=== PATIENT | female | born 1935 | race Caucasian/White ===

== ENCOUNTER 2017-05-25 15:00 | Inpatient (IN) | payer MEDICARE ==
[~2017-05-25] VITALS: Ht 167.6 cm; Wt 79.1 kg
[~2017-05-25 15:00] MED LIST: LOSA50TA2 PO; MIRA50TA PO; PRAV10TA39 PO; SOLI10TA PO
[2017-06-15 12:28] VITALS: BP 157/73
[2017-06-15] MEDS ORDERED: HYDR25TA PO (12:32)
[2017-06-15] MEDS ORDERED: ASPI-1181 PO (12:34)
[2017-06-15] MEDS: CEFAZOLIN SODIUM 1 GM VIAL IVP SCH (12:45)
[2017-06-15 12:50] LABS: BASOPHILS % (AUTO) 0.6 % (0.0-5.0); HEMATOCRIT 37.4 % (36-48); LYMPHOCYTES % (AUTO) 20.3 % (21.0-51.0); MEAN CORPUSCULAR HEMOGLOBIN 31.5 pg (27.0-33.0); MEAN CORPUSCULAR HGB CONC 34.8 g/dL (32.0-36.0); MEAN CORPUSCULAR VOLUME 90.7 fL (79-99); MONOCYTES % (AUTO) 11.9 % (3.0-13.0); NEUTROPHILS % (AUTO) 65.2 % (40.0-77.0); PLATELET COUNT (AUTO) 304 K/uL (130-400); RED BLOOD CELL COUNT(AUTO) 4.12 MIL/uL (4.00-5.50); RED CELL DISTRIBUTION WIDTH 12.4 % (11.0-15.5); WHITE BLOOD COUNT (AUTO) 7.8 K/uL (4.8-10.8)
[2017-06-15 13:06] LABS: POTASSIUM 4.4 mmol/L (3.5-5.1)
[2017-06-19] VITALS (21 sets, daily range): BP systolic 102–155; BP diastolic 44–83
[2017-06-19] MEDS ORDERED: LACTATED RINGERS 1000ML 1,000 ML IV ONE (06:30)
[2017-06-19] MEDS ORDERED: BUPIVACAINE/EPI/PF 0.25% 30ML VIAL IJ ONE (06:31)
[2017-06-19] MEDS ORDERED: MICROFIBRILLAR COLLAGEN 1 GM PACKAGE TP ONE (06:31)
[2017-06-19] MEDS ORDERED: THROMBIN-JMI 20000 UNIT KIT TP ONE (06:32)
[2017-06-19] MEDS ORDERED: BACITRACIN 50,000 UNIT VIAL ONE (06:32)
[2017-06-19 06:58] LABS: CREATININE 0.8 mg/dL (0.5-1.5); POTASSIUM 3.7 mmol/L (3.5-5.1)
[2017-06-19] MEDS ORDERED: LIDOCAINE PF 2% 5ML ABBOJECT ONE (07:06)
[2017-06-19] MEDS ORDERED: GLYCOPYRROLATE 0.2 MG/ML 5 ML VIAL ONE ×2 (07:06→09:09)
[2017-06-19] MEDS ORDERED: DEXAMETHASONE SOD PHOSPHATE 10MG/ML 1ML VIAL ONE ×2 (07:06→09:08)
[2017-06-19] MEDS ORDERED: PROPOFOL 10 MG/ML 20ML VIAL IV ONE (07:07)
[2017-06-19] MEDS ORDERED: MIDAZOLAM HCL 1 MG/ML 2ML VIAL ONE ×2 (07:08→07:47)
[2017-06-19] MEDS ORDERED: FENTANYL CITRATE PF 50 MCG/1 ML 2ML VIAL ONE ×4 (07:09→10:31)
[2017-06-19] MEDS ORDERED: SODIUM CHLORIDE 0.9% 1000ML 1,000 ML IV ONE (07:16)
[2017-06-19] MEDS ORDERED: EPHEDRINE SULFATE 50 MG/ML AMPULE ONE (07:59)
[2017-06-19] MEDS: CEFAZOLIN SODIUM 1 GM VIAL IVP SCH (08:00)
[2017-06-19] MEDS ORDERED: MANNITOL 20% 500ML BAG 500 ML IV ONE (08:18)
[2017-06-19] MEDS ORDERED: LIDOCAINE HCL 4% LTA SOL 4 ML VIAL ONE (09:08)
[2017-06-19] MEDS ORDERED: ROCURONIUM BROMIDE 10MG/1ML 5ML VL ONE ×2 (09:08)
[2017-06-19] MEDS ORDERED: SUCCINYLCHOLINE CHLORIDE 20 MG/ML 10 ML VIAL ONE (09:08)
[2017-06-19] MEDS ORDERED: LIDOCAINE HCL 2% JELLY 5 ML ONE (09:08)
[2017-06-19] MEDS ORDERED: ARTIFICIAL TEARS 3.5 GM OINTMENT ONE ×2 (09:08)
[2017-06-19] MEDS ORDERED: SODIUM CHLORIDE 0.9% 10 ML VIAL ONE (09:09)
[2017-06-19] MEDS ORDERED: METOCLOPRAMIDE 10 MG/2 ML VIAL ONE (09:09)
[2017-06-19] MEDS ORDERED: PHENYLEPHRINE HCL 10 MG/ML 1ML VIAL IV ONE (09:09)
[2017-06-19] MEDS ORDERED: ONDANSETRON HCL MDV 20ML 2 MG/ML VIAL ONE (09:09)
[2017-06-19] MEDS ORDERED: NEOSTIGMINE METHYLSULFATE 1MG/ML IV ONE (09:09)
[2017-06-19] MEDS ORDERED: CALDOLOR 800MG+NS 250ML 250 ML IV ONE (09:14)
[2017-06-19] MEDS ORDERED: CEFAZOLIN 2GM / 50 ML 50 ML IV SCH (10:00)
[2017-06-19] MEDS ORDERED: SODIUM CHLORIDE 0.9% 10 ML VIAL IVP PRN (10:00)
[2017-06-19] MEDS ORDERED: PROMETHAZINE HCL 25 MG/ML 1ML AMPULE IM PRN (10:00)
[2017-06-19] MEDS ORDERED: MORPHINE SULFATE 2 MG/ML 1ML SYG IVP PRN (10:00)
[2017-06-19] MEDS ORDERED: MEPERIDINE-PF 25 MG/ML SYG ONE (10:21)
[2017-06-19] MEDS ORDERED: CEFAZOLIN SODIUM 1 GM VIAL IVP SCH ×2 (10:45→15:30)
[2017-06-19 11:38] LABS: CREATININE 0.9 mg/dL (0.5-1.5); POTASSIUM 3.9 mmol/L (3.5-5.1)
[2017-06-19] MEDS: DEXAMETHASONE SOD PHOSPHATE 4 MG/ML 1ML VIAL IVP SCH ×3 (12:00→22:24)
[2017-06-19] MEDS: LACTATED RINGERS 1000ML 1,000 ML IV SCH ×2 (15:44→22:51)
[2017-06-19] MEDS ORDERED: PRAVASTATIN SODIUM 10 MG PO SCH (21:00)
[2017-06-19] MEDS ORDERED: LOSARTAN 50 MG TABLET PO SCH (21:00)
[2017-06-19] MEDS ORDERED: ASPIRIN 81 MG EC TAB PO SCH (21:00)
[2017-06-19] MEDS: SOLIFENACIN SUCCINATE 10 MG PO SCH (21:00)
[2017-06-19] MEDS: HYDROCODONE/ACETAMINOPHEN 5/325 MG TAB PO PRN (21:14)
[2017-06-20 00:07] VITALS: BP 124/59
[2017-06-20] MEDS: DEXAMETHASONE SOD PHOSPHATE 4 MG/ML 1ML VIAL IVP SCH (04:20)
[2017-06-20] MEDS: HYDROCODONE/ACETAMINOPHEN 5/325 MG TAB PO PRN (04:21)
[2017-06-20 04:26] VITALS: BP 122/61
[2017-06-20 05:40] LABS: CREATININE 0.8 mg/dL (0.5-1.5); POTASSIUM 4.2 mmol/L (3.5-5.1)
[2017-06-20 07:37] VITALS: BP 142/81
[2017-06-20] MEDS: SOLIFENACIN SUCCINATE 10 MG PO SCH (08:52)
[2017-06-20] MEDS ORDERED: HYDROCHLOROTHIAZIDE 25 MG TABLET PO SCH (09:00)
[2017-06-20] MEDS ORDERED: **HM**Mirabegron (Myrbetriq) 50 MG PO SCH (09:00)
== END 2017-06-20 10:20 | disposition home or self-care (01) | DRG 519 ==
LOC: EDSTATUS 15:00 → DAHIP 06-19 05:44 → 4AH 06-19 11:10
PROVIDERS: ADMIT Neurological Surgery; ATTEND Neurological Surgery
PROC: 00NW0ZZ Release Cervical Spinal Cord, Open Approach (ICD-10-PCS; principal; 2017-06-20)
DX: M48.02 Spinal stenosis, cervical region (principal); E87.1 Hypo-osmolality and hyponatremia; E78.5 Hyperlipidemia, unspecified; I10 Essential (primary) hypertension; I25.10 Atherosclerotic heart disease of native coronary artery without angina pectoris; M25.78 Osteophyte, vertebrae; E66.9 Obesity, unspecified; K21.9 Gastro-esophageal reflux disease without esophagitis; Z68.28 Body mass index [BMI] 28.0-28.9, adult; Z98.1 Arthrodesis status; Z90.710 Acquired absence of both cervix and uterus
CPT/HCPCS: 36415; 72020; 80048; 85025; A4218; A4344; J0330; J0690; J1100; J1741; J2001; J2175; J2250; J2370; J2704; J2710; J2765; J3010; J3490; J7030; J7120

== ENCOUNTER → 2017-07-20 | Outpatient (CLI) | payer MEDICARE ==
[~2017-07-20] MED LIST changes: +ASPI-1181 PO
== END | disposition home or self-care (01) ==
LOC: OIH 10:49
PROVIDERS: ATTEND Neurological Surgery
DX: M47.892 Other spondylosis, cervical region (principal); N88.2 Stricture and stenosis of cervix uteri
CPT/HCPCS: 72040

== ENCOUNTER → 2017-08-17 | Outpatient (CLI) | payer MEDICARE ==
[~2017-08-17] MED LIST changes: +GADOBENATE DIMEGLUMINE 10 ML IV ONE
== END | disposition home or self-care (01) ==
LOC: RAH 10:52
PROVIDERS: ATTEND Physical Medicine & Rehabilitation
DX: M48.061 Spinal stenosis, lumbar region without neurogenic claudication (principal); M25.78 Osteophyte, vertebrae
CPT/HCPCS: 72158; A9577

== ENCOUNTER 2018-04-29 07:02 | Emergency (ER) | payer MEDICARE ==
[~2018-04-29 07:02] MED LIST changes: -GADOBENATE DIMEGLUMINE 10 ML IV ONE
[2018-04-29] MEDS ORDERED: KETOROLAC TROMETHAMINE 60 MG/2 ML VIAL ONE (07:27)
[2018-04-29] MEDS ORDERED: MORPHINE SULFATE 4 MG/1ML SYG ONE (07:52)
== END 2018-04-29 08:21 | disposition home or self-care (01) ==
LOC: EDH 07:02
DX: M54.32 Sciatica, left side (principal); I10 Essential (primary) hypertension; E78.5 Hyperlipidemia, unspecified; Z87.891 Personal history of nicotine dependence
CPT/HCPCS: 96372 ×2; 99283; J1885; J2270

== ENCOUNTER → 2018-05-02 | Outpatient (CLI) | payer MEDICARE ==
[~2018-05-02] MED LIST changes: +GADODIAMIDE 5 MMOL/10 ML VIAL 5 MMOL/10 ML ML IV ONE
== END | disposition home or self-care (01) ==
LOC: RAH 11:39
PROVIDERS: ATTEND Physical Medicine & Rehabilitation
DX: M16.11 Unilateral primary osteoarthritis, right hip (principal); K43.9 Ventral hernia without obstruction or gangrene; M47.27 Other spondylosis with radiculopathy, lumbosacral region; N32.89 Other specified disorders of bladder
CPT/HCPCS: 72197; A9579

== ENCOUNTER 2018-05-15 05:57 | Day surgery (SDC) | payer MEDICARE ==
[2018-05-13 12:45] VITALS: BP 145/76
[2018-05-15] VITALS (11 sets, daily range): BP systolic 131–166; BP diastolic 46–77
[~2018-05-15] VITALS: Ht 165.1 cm; Wt 70.9 kg
[~2018-05-15 05:57] MED LIST changes: +CA/MAG/ZINC PO; +CALC-116 PO; +CALCIUM/VIT D PO; +FISH OIL PO; +GABA-529 PO; -GADODIAMIDE 5 MMOL/10 ML VIAL 5 MMOL/10 ML ML IV ONE; +HYDR25TA PO; +I CAP PO; +MIRALAX PO; +MULT1TAB70 PO; +POTA99TA21 PO; +UBID200C37 PO; +VITAMIN B12 PO
[2018-05-15] MEDS ORDERED: GABA-529 PO ×2 (06:48)
--- NOTE | 2018-05-15 07:00 | NUR ---
PROCEDURE PT TAKEN TO RADIOLOGY FOR PROCEDURE VIA STRETCHER, NO DISTRESS NOTED.
[2018-05-15] MEDS ORDERED: ISOVUE-M 200 20 ML VIAL IT ONE (07:03)
--- NOTE | 2018-05-15 07:25 | NUR ---
CT LUMBAR MYELOGRAM PROCEDURE PERFORMED BY DR MAYERS. PUNCTURE SITE LOW BACK AND PATIENT TOLERATED PROCEDURE WELL. CONTRAST INJECTION OF ISOVUE 200MG/20ML GIVEN AT 0735 AND END OF PROCEDURE AT 0740. SPINAL NEEDLE REMOVED AND BANDAID APPLIED WITH NO BLEEDING NOTED. PER DR MAYERS ORDER S/L STARTED PT C/O LEFT LEG AND LUMBAR PAIN, S/L STARTED RW 22G X 1 STICK, MORPHINE 1 MG GIVEN IV, DECADRON 4 MG GIVEN IV. REPORT GIVEN TO URSULA ROGEL AND PATIENT TRANSPORTED TO DAYPATIENT VIA BED. AAO X3, C/O SLIGHT DISCOMFORT BUT FEELING BETTER.
[2018-05-15] MEDS ORDERED: MORPHINE SULFATE 2 MG/ML 1ML SYG ONE (07:45)
[2018-05-15] MEDS ORDERED: DEXAMETHASONE SOD PHOSPHATE 4 MG/ML 1ML VIAL ONE (08:00)
--- NOTE | 2018-05-15 08:00 | NUR ---
PROCEDURE RECEIVED PT FROM RADIOLOGY , S/P LUMBAR MYELOGRAM, DRESSING TO MID BACK DRY AND INTACT, PT INSTRUCTED TO MAINTAIN BEDREST FOR 4 HOURS AND ENCOURAGE PO FLUIDS, VS STABLE ON ARRIVAL.
[2018-05-15] MEDS ORDERED: METOPROLOL TARTRATE 50 MG TAB ONE (08:55)
[2018-05-15] MEDS ORDERED: ACETAMINOPHEN 325 MG TAB ONE (08:56)
--- NOTE | 2018-05-15 09:33 | NUR ---
REPORT REPORT GIVEN TO SANTOSH THAO TO RESUME CARE OF PATIENT
--- NOTE | 2018-05-15 09:35 | NUR ---
REPORT RECEIVED FROM BRYN RN,PT AWAKE ,ALERT ,NO COMPLAINS OF PAIN ,,,DRESSING TO BACK CLEAN AND DRY,,CALL AHUMADA IN REACH
[2018-05-15] MEDS ORDERED: LIDOCAINE HCL 1% 20 ML VIAL ONE (09:55)
--- NOTE | 2018-05-15 10:15 | NUR ---
RESTING COMFORTABLY ,NO DISCOMFORT,RESP NONLABORED ,ASSESSED PT,LUNGS CLEAR ,REMAINS ON BEDREST,CALL AHUMADA, IN REACH
--- NOTE | 2018-05-15 11:45 | NUR ---
REPOSITIONED IN BED ,NO COMPLAINTS ,CONTINUES TO DRINK FLUIDS
--- NOTE | 2018-05-15 12:10 | NUR ---
ASSISTED TO SIT UP IN BED SLOWLY,,DOES WELL,NO DIZZINESS ,NO COMPLAINTS ,DRESSING TO MID BACK CLEAN AND DRY,,ASSISTED TO BR ,AMBULATES WITH CANE ,VOIDS,,
--- NOTE | 2018-05-15 12:15 | NUR ---
INSTRUCTIONS GIVEN TO PT AND FRIEND,VERBALIZE UNDERSTANDING,,,STATES WILL HAVE SOMEONE WITH HER AT ALL TIMES ,,AWARE TO CALL MD IF ANY CONCERNS,VERBALIZES UNDERSTANDING,AWARE TO START PRESCRIPTION TODAY,,PRESCRIPTION GIVEN TO FRIEND
--- NOTE | 2018-05-15 12:35 | NUR ---
TO CAR VIA WHEEL CHAIR
== END 2018-05-15 12:35 | disposition home or self-care (01) ==
LOC: DAH 05:57
PROVIDERS: ATTEND Neurological Surgery
DX: M54.16 Radiculopathy, lumbar region (principal); Z98.890 Other specified postprocedural states; Z79.899 Other long term (current) drug therapy
CPT/HCPCS: 62304; 72132; A4606; J1100; Q9966

== ENCOUNTER → 2019-01-29 | Outpatient (CLI) | payer MEDICARE ==
[~2019-01-29] MED LIST changes: -SOLI10TA PO
== END | disposition home or self-care (01) ==
LOC: RAH 12:41
PROVIDERS: ATTEND Physical Medicine & Rehabilitation
DX: M16.0 Bilateral primary osteoarthritis of hip (principal); M70.62 Trochanteric bursitis, left hip
CPT/HCPCS: 72195

== ENCOUNTER → 2019-02-17 | Outpatient (CLI) | payer MEDICARE ==
[~2019-02-17] MED LIST changes: +GADODIAMIDE 10 MMOL/20 ML VIAL IV ONE
== END | disposition home or self-care (01) ==
LOC: RAH 13:05
PROVIDERS: ATTEND Physical Medicine & Rehabilitation
DX: M48.061 Spinal stenosis, lumbar region without neurogenic claudication (principal); M51.36 Other intervertebral disc degeneration, lumbar region
CPT/HCPCS: 72158; A9579

== ENCOUNTER 2019-05-01 16:44 | Emergency (ER) | payer MEDICARE ==
[2019-05-01 17:30] LABS: CREATININE 0.6 mg/dL (0.5-1.5); POTASSIUM 3.8 mmol/L (3.5-5.1)
[2019-05-01 17:39] LABS: INR 1.08 (0.85-1.15); PARTIAL THROMBOPLASTIN TIME 27.7 SEC (26.3-35.5); PROTHROMBIN TIME 11.3 SEC (9.6-11.6)
[2019-05-01 17:57] LABS: BASOPHILS % (AUTO) 0.5 % (0.0-5.0); EOSINOPHILS % (AUTO) 4.1 % (0.0-8.0); HEMATOCRIT 31.9 % (36-48); MEAN CORPUSCULAR HEMOGLOBIN 30.7 pg (27.0-33.0); MEAN CORPUSCULAR HGB CONC 33.9 g/dL (32.0-36.0); MEAN CORPUSCULAR VOLUME 90.6 fL (79-99); MONOCYTES % (AUTO) 10.7 % (3.0-13.0); NEUTROPHILS % (AUTO) 62.4 % (40.0-77.0); PLATELET COUNT (AUTO) 262 K/uL (130-400); RED BLOOD CELL COUNT(AUTO) 3.52 MIL/uL (4.00-5.50); RED CELL DISTRIBUTION WIDTH 12.8 % (11.0-15.5); WHITE BLOOD COUNT (AUTO) 8.8 K/uL (4.8-10.8)
== END 2019-05-01 19:29 | disposition home or self-care (01) ==
LOC: EDH 16:44
DX: I82.431 Acute embolism and thrombosis of right popliteal vein (principal); E78.5 Hyperlipidemia, unspecified; I10 Essential (primary) hypertension; Z88.8 Allergy status to other drugs, medicaments and biological substances
CPT/HCPCS: 36415; 80048; 85025; 85610; 85730; 93926; 93971

== ENCOUNTER → 2019-05-01 | Outpatient (CLI) | payer MEDICARE ==
[~2019-05-01] MED LIST changes: -GADODIAMIDE 10 MMOL/20 ML VIAL IV ONE
== END | disposition home or self-care (01) ==
LOC: RAH 15:11
PROVIDERS: ATTEND Family Medicine
DX: I70.293 Other atherosclerosis of native arteries of extremities, bilateral legs (principal)
CPT/HCPCS: 93926; 93971

== ENCOUNTER → 2019-08-12 | Outpatient (CLI) | payer MEDICARE ==
[~2019-08-12] MED LIST changes: +APIX5TAB PO; -ASPI-1181 PO; +ASPI-1443 PO; +MULT-660 PO; -MULT1TAB70 PO; +OXYB5TAB15 PO; +RESTLESS LEG PO; +tylenol arthritis PO
== END | disposition home or self-care (01) ==
LOC: SHCH 13:31
PROVIDERS: ATTEND Internal Medicine Cardiovascular Disease
DX: I73.89 Other specified peripheral vascular diseases (principal)
CPT/HCPCS: 93925

== ENCOUNTER 2019-11-12 12:00 | Inpatient (IN) | payer MEDICARE ==
[~2019-11-12] VITALS: Ht 167.6 cm; Wt 66.7 kg
[~2019-11-12 12:00] MED LIST changes: -APIX5TAB PO; -ASPI-1443 PO; -GABA-529 PO; -MIRA50TA PO; -OXYB5TAB15 PO; -RESTLESS LEG PO; -VITAMIN B12 PO; -tylenol arthritis PO
[2019-11-12 16:45] LABS: BASOPHILS % (AUTO) 0.4 % (0.0-5.0); HEMATOCRIT 36.5 % (36-48); LYMPHOCYTES % (AUTO) 20.7 % (21.0-51.0); MEAN CORPUSCULAR HEMOGLOBIN 30.4 pg (27.0-33.0); MEAN CORPUSCULAR HGB CONC 33.4 g/dL (32.0-36.0); MONOCYTES % (AUTO) 8.2 % (3.0-13.0); NEUTROPHILS % (AUTO) 68.3 % (40.0-77.0); PLATELET COUNT (AUTO) 257 K/uL (130-400); RED BLOOD CELL COUNT(AUTO) 4.01 MIL/uL (4.00-5.50); RED CELL DISTRIBUTION WIDTH 13.7 % (11.0-15.5); WHITE BLOOD COUNT (AUTO) 11.2 K/uL (4.8-10.8)
[2019-11-12 16:51] LABS: APPEARANCE,URINE Clear (CLEAR); BILIRUBIN,URINE Negative (NEGATIVE); COLOR,URINE Yellow (YELLOW); GLUCOSE, URINE (UA) Negative (NEGATIVE); KETONES,URINE Trace mg/dL (NEGATIVE); LEUKOCYTE ESTERASE ,URINE Negative (NEGATIVE); NITRATE,URINE Negative (NEGATIVE); OCCULT BLOOD,URINE Small (NEGATIVE); PROTEIN,URINE Negative (NEGATIVE)
[2019-11-12 16:52] LABS: INR 1.11 (0.85-1.15); PROTHROMBIN TIME 11.9 SEC (9.6-11.6)
[2019-11-12 17:09] LABS: BACTERIA,URINE Few /HPF (None Seen); MUCUS,URINE Few LPF (None Seen); SQUAMOUS EPITHELIAL CELL,UR Moderate /HPF (0-2)
[2019-11-12 17:13] LABS: CREATININE 0.8 mg/dL (0.5-1.5); POTASSIUM 3.8 mmol/L (3.5-5.1)
--- NOTE | 2019-11-18 11:11 | NUR ---
LABS INFORMED DR. FREEMAN OF ABNORMAL UA/WBC. NO ORDERS RECEIVED. PROCEED WITH PLANNED PROCEDURE.
[2019-11-18 13:06] VITALS: BP 149/80
[2019-11-18] MEDS ORDERED: OXYB5TAB15 PO (14:53)
[2019-11-18] MEDS ORDERED: tylenol arthritis PO (14:53)
[2019-11-19] VITALS (24 sets, daily range): BP systolic 98–139; BP diastolic 50–72
[2019-11-19] MEDS: CEFAZOLIN SODIUM 1 GM VIAL IVP SCH ×2 (06:00→14:45)
[2019-11-19] MEDS ORDERED: LACTATED RINGERS 1000ML 1,000 ML IV ONE (08:28)
[2019-11-19] MEDS ORDERED: APIX5TAB PO (09:28)
[2019-11-19] MEDS ORDERED: RESTLESS LEG PO (09:28)
[2019-11-19] MEDS ORDERED: TRANEXAMIC ACID 1000MG/10ML ONE ×2 (12:58→13:27)
[2019-11-19] MEDS ORDERED: CEFAZOLIN SODIUM 1 GM VIAL ONE (13:27)
[2019-11-19] MEDS ORDERED: SUCCINYLCHOLINE CHLORIDE 20 MG/ML 10 ML VIAL ONE (13:59)
[2019-11-19] MEDS ORDERED: LIDOCAINE PF 2% 5ML ABBOJECT ONE (13:59)
[2019-11-19] MEDS ORDERED: GLYCOPYRROLATE 1 MG/5 ML SYRINGE ONE (14:00)
[2019-11-19] MEDS ORDERED: ONDANSETRON HCL 4 MG/2 ML VIAL ONE (14:00)
[2019-11-19] MEDS ORDERED: DEXAMETHASONE SOD PHOSPHATE 10MG/ML 1ML VIAL ONE (14:00)
[2019-11-19] MEDS ORDERED: NEOSTIGMINE 5MG/5ML SYR IV ONE (14:00)
[2019-11-19] MEDS ORDERED: PROPOFOL 10 MG/ML 20ML VIAL IV ONE (14:00)
[2019-11-19] MEDS ORDERED: KETAMINE 50MG/ML SYRINGE 50 MG/ML DISP.SYRIN IV ONE (14:04)
[2019-11-19] MEDS ORDERED: SODIUM CHLORIDE 0.9% 10 ML VIAL ONE (14:07)
[2019-11-19] MEDS ORDERED: ROCURONIUM 10MG/1ML SYR 10 MG/ML ML ONE ×2 (14:21→15:46)
[2019-11-19] MEDS ORDERED: EPHEDRINE SULFATE 50 MG/ML AMPULE ONE ×2 (15:03→16:52)
[2019-11-19] MEDS ORDERED: FENTANYL CITRATE PF 50 MCG/1 ML 2ML VIAL ONE ×2 (15:39→16:36)
[2019-11-19] MEDS ORDERED: CEFAZOLIN SODIUM 1 GM VIAL IRRIG ONE (15:40)
[2019-11-19] MEDS: SODIUM CHLORIDE 0.9% 1000ML 1,000 ML IV SCH (17:05)
[2019-11-19] MEDS ORDERED: DiphenhydrAMINE HCL 50 MG/ML VIAL IVP PRN (17:15)
[2019-11-19] MEDS ORDERED: POTASSIUM CHLORIDE 20MEQ/100ML 100 ML IV PRN (17:15)
[2019-11-19] MEDS ORDERED: ONDANSETRON HCL 4 MG/2 ML VIAL IVP PRN (17:15)
[2019-11-19] MEDS ORDERED: KETOROLAC TROMETHAMINE 15MG/ML IV PRN (17:15)
[2019-11-19] MEDS ORDERED: OXYCODONE HCL 5 MG TAB PO PRN (17:15)
[2019-11-19] MEDS ORDERED: LIDOCAINE HCL-MPF 1% 2ML VIAL IV PRN (17:15)
[2019-11-19] MEDS ORDERED: POTASSIUM CHLORIDE 20 MEQ ERTAB PO PRN (17:15)
[2019-11-19] MEDS ORDERED: CALCIUM CARBONATE 500 MG TABLET PO PRN (17:15)
[2019-11-19] MEDS ORDERED: FERROUS FUMARATE 324 MG TABLET PO PRN (17:15)
[2019-11-19] MEDS ORDERED: TEMAZEPAM 15 MG CAPSULE PO PRN (17:15)
[2019-11-19] MEDS ORDERED: POTASSIUM CHLORIDE 10% ELIXIR 20 MEQ/15 ML UDCUP PO PRN (17:15)
[2019-11-19] MEDS ORDERED: MEPERIDINE-PF 25 MG/ML SYG ONE ×2 (18:05→18:14)
[2019-11-19] MEDS: CELECOXIB 200 MG CAP PO SCH (20:38)
[2019-11-19] MEDS: FAMOTIDINE 20MG TAB 20 MG TAB PO SCH (20:38)
[2019-11-19] MEDS: PREGABALIN 25 MG CAP PO SCH (20:38)
[2019-11-20] VITALS (10 sets, daily range): BP systolic 58–127; BP diastolic 31–70
[2019-11-20] MEDS: CEFAZOLIN SODIUM 1 GM VIAL IVP SCH ×2 (00:44→08:36)
[2019-11-20] MEDS: ACETAMINOPHEN EXTRA STRENGTH 500 MG TABLET PO SCH ×4 (01:15→17:43)
[2019-11-20] MEDS: SODIUM CHLORIDE 0.9% 1000ML 1,000 ML IV SCH ×3 (03:05→16:42)
[2019-11-20 04:58] LABS: HEMATOCRIT 25.5 % (36-48); MEAN CORPUSCULAR HEMOGLOBIN 30.6 pg (27.0-33.0); MEAN CORPUSCULAR HGB CONC 33.7 g/dL (32.0-36.0); MEAN CORPUSCULAR VOLUME 90.7 fL (79-99); RED BLOOD CELL COUNT(AUTO) 2.81 MIL/uL (4.00-5.50); RED CELL DISTRIBUTION WIDTH 13.6 % (11.0-15.5); WHITE BLOOD COUNT (AUTO) 9.9 K/uL (4.8-10.8)
[2019-11-20 05:21] LABS: CREATININE 0.7 mg/dL (0.5-1.5); POTASSIUM 4.6 mmol/L (3.5-5.1)
[2019-11-20] MEDS ORDERED: FE FUMARATE/FA/MV, MIN COMB#15 1 TAB ONE (05:25)
[2019-11-20] MEDS ORDERED: CEFAZOLIN SODIUM 1 GM VIAL ONE (08:35)
[2019-11-20] MEDS: POLYETHYLENE GLYCOL 3350 17 GM POWD.PACK PO SCH (08:36)
[2019-11-20] MEDS: FAMOTIDINE 20MG TAB 20 MG TAB PO SCH ×2 (08:37→20:50)
[2019-11-20] MEDS: CELECOXIB 200 MG CAP PO SCH ×2 (08:37→20:50)
[2019-11-20] MEDS: OXYCODONE HCL 5 MG TAB PO PRN (08:38)
[2019-11-20] MEDS: PREGABALIN 25 MG CAP PO SCH ×2 (08:38→20:50)
[2019-11-20] MEDS ORDERED: APIXABAN 2.5 MG TABLET PO SCH (09:00)
[2019-11-20] MEDS ORDERED: SODIUM CHLORIDE 0.9% 500ML 500 ML IV SCH (11:15)
[2019-11-20] MEDS: OXYBUTYNIN CHLORIDE 5 MG TABLET PO SCH (20:50)
[2019-11-20] MEDS: SIMVASTATIN 10 MG TABLET PO SCH (20:50)
[2019-11-20] MEDS: APIXABAN 2.5 MG TABLET PO SCH (20:50)
[2019-11-21 00:26] VITALS: BP 121/54
[2019-11-21] MEDS: ACETAMINOPHEN EXTRA STRENGTH 500 MG TABLET PO SCH ×3 (02:17→18:13)
[2019-11-21 04:30] VITALS: BP 121/57
[2019-11-21 08:32] VITALS: BP 113/52
[2019-11-21] MEDS: OXYCODONE HCL 5 MG TAB PO PRN (08:42)
[2019-11-21] MEDS: APIXABAN 2.5 MG TABLET PO SCH ×2 (08:42→21:33)
[2019-11-21] MEDS: POLYETHYLENE GLYCOL 3350 17 GM POWD.PACK PO SCH (08:42)
[2019-11-21] MEDS: PREGABALIN 25 MG CAP PO SCH ×2 (08:44→21:34)
[2019-11-21] MEDS: FAMOTIDINE 20MG TAB 20 MG TAB PO SCH ×2 (08:44→21:34)
[2019-11-21] MEDS: CELECOXIB 200 MG CAP PO SCH ×2 (08:44→21:34)
[2019-11-21] MEDS ORDERED: CALCIUM PO SCH (09:00)
[2019-11-21] MEDS ORDERED: MAGNESIUM PO SCH (09:00)
[2019-11-21] MEDS ORDERED: ZINC PO SCH (09:00)
[2019-11-21] MEDS ORDERED: MULTIVITAMIN TABLET PO SCH (09:00)
[2019-11-21] MEDS ORDERED: FISH OIL 500 MG PO SCH (09:00)
[2019-11-21] MEDS ORDERED: MAG PO SCH (09:00)
[2019-11-21] MEDS ORDERED: [UNRECOGNIZED DRUG - OTHER] PO SCH (09:00)
[2019-11-21 11:22] VITALS: BP 125/49
[2019-11-21 13:01] LABS: HEMATOCRIT 21.6 % (36-48)
--- NOTE | 2019-11-21 14:00 | NUR ---
MET W PATIENT FOR DC PLANNING. PATIENT IS IN[place], LIVES ALONE, USES NO DME, HAS A SHOWER BENCH, HAS DAUGHTER OUT OF STATE BUT HAS GROUP OF FRIENDS HERE FOR ERRANDS/DRIVING ETC. DC IS TO [facility] AND REFERRAL SENT Addendum: 11/21/19 at 1849 by FLORESITA FLOWERS RN CM Amended: Links added.
[2019-11-21 16:57] VITALS: BP 110/42
[2019-11-21] MEDS ORDERED: MAGNESIUM CITRATE 296 ML SOLUTION ONE (18:06)
--- NOTE | 2019-11-21 18:38 | NUR ---
TO [facility] TONIGHT POST TRANSFUSION? EMS FORM PENDING TO BE FAXED, MOT PENDING TO BE SIGNED BY SOCIAL SERVICE TECHNICIAN. CALL TO HOUSE TO CHARGE TO REMIND TO SIGN PRIOR TO DC. Addendum: 11/21/19 at 1844 by FLORESITA FLOWERS RN CM Amended: Links added.
--- NOTE | 2019-11-21 20:00 | NUR ---
POST TRANSFUSION COMPLETE, TOLERATED WELL, NO REACTION NOTED, CHANGED DRESSING RIGHT HIP, INCISION D/I, NO REDNESS OR DRAINAGE NOTED AT THIS TIME, CLEANSED WITH BETADINE, DAB DRY, APPLY VENKAT DRESSING , DATE REMOVE 11/26/19, FLASHING GREEN
--- NOTE | 2019-11-21 20:57 | NUR ---
EMS PER MORNING NURSE EMS CALLED AWAITING FOR TRANSFER TO [facility], LEFT HAND 20 GAUGE CATHETER REMOVED APPLY 2X2 DRESSING
[2019-11-21] MEDS ORDERED: POTASSIUM GLUCONATE 99 MG PO SCH (21:00)
[2019-11-21] MEDS: OXYBUTYNIN CHLORIDE 5 MG TABLET PO SCH (21:34)
[2019-11-21] MEDS: SIMVASTATIN 10 MG TABLET PO SCH (21:34)
--- NOTE | 2019-11-21 21:50 | NUR ---
DISCHARGE DISCHARGE TO [facility] [place] VIA EMS, NO C/O PAIN AT THIS TIME, R HIP VENKAT DRESSING FLASHING GREEN
[2019-11-22] MEDS ORDERED: BISACODYL 10 MG SUPP.RECT RC PRN (17:15)
== END 2019-11-21 21:50 | DRG 470 ==
LOC: EDSTATUS 12:00 → DAHIP 11-19 07:54 → 3BH 11-19 18:51
PROVIDERS: ADMIT Orthopaedic Surgery; ATTEND Orthopaedic Surgery
PROC: 0SR90J9 Replacement of Right Hip Joint with Synthetic Substitute, Cemented, Open Approach (ICD-10-PCS; principal; 2019-11-19 14:09)
PROC: 3E0T3BZ Introduction of Anesthetic Agent into Peripheral Nerves and Plexi, Percutaneous Approach (ICD-10-PCS; 2019-11-19 14:09)
PROC: 30233N1 Transfusion of Nonautologous Red Blood Cells into Peripheral Vein, Percutaneous Approach (ICD-10-PCS; 2019-11-19 14:09)
DX: M16.11 Unilateral primary osteoarthritis, right hip (principal); D62 Acute posthemorrhagic anemia; I10 Essential (primary) hypertension; K21.9 Gastro-esophageal reflux disease without esophagitis; E78.5 Hyperlipidemia, unspecified; H26.9 Unspecified cataract; K59.09 Other constipation; I95.1 Orthostatic hypotension; Z90.711 Acquired absence of uterus with remaining cervical stump; Z88.8 Allergy status to other drugs, medicaments and biological substances; Z80.9 Family history of malignant neoplasm, unspecified; Z82.49 Family history of ischemic heart disease and other diseases of the circulatory system
CPT/HCPCS: 36415; 36430; 73503; 80048; 81001; 85014; 85018; 85025; 85027; 85610; 86850; 86900; 86901; 86922; 87641; 88304; 88311; 97039; C1776; G0378; J0330; J0690; J1100; J1885; J2001; J2175; J2405; J2704; J2710; J3010; J3490; J7030; J7120; P9016; U0003

== ENCOUNTER → 2020-03-24 | Outpatient (CLI) | payer MEDICARE ==
[~2020-03-24] MED LIST changes: +APIX5TAB PO; +OXYB5TAB15 PO; +RESTLESS LEG PO; +tylenol arthritis PO
== END | disposition home or self-care (01) ==
LOC: RAH 09:07
PROVIDERS: ATTEND Neurological Surgery
DX: M53.2X7 Spinal instabilities, lumbosacral region (principal)
CPT/HCPCS: 72192

== ENCOUNTER 2020-04-06 05:51 | Day surgery (SDC) | payer MEDICARE ==
[2020-04-01 12:30] LABS: BASOPHILS % (AUTO) 0.6 % (0.0-5.0); EOSINOPHILS % (AUTO) 2.1 % (0.0-8.0); HEMATOCRIT 36.2 % (36-48); LYMPHOCYTES % (AUTO) 29.5 % (21.0-51.0); MEAN CORPUSCULAR HEMOGLOBIN 30.6 pg (27.0-33.0); MEAN CORPUSCULAR HGB CONC 32.6 g/dL (32.0-36.0); MONOCYTES % (AUTO) 9.3 % (3.0-13.0); NEUTROPHILS % (AUTO) 58.3 % (40.0-77.0); PLATELET COUNT (AUTO) 235 K/uL (130-400); RED BLOOD CELL COUNT(AUTO) 3.85 MIL/uL (4.00-5.50); RED CELL DISTRIBUTION WIDTH 13.9 % (11.0-15.5); WHITE BLOOD COUNT (AUTO) 5.3 K/uL (4.8-10.8)
[2020-04-01 12:37] LABS: CREATININE 0.7 mg/dL (0.5-1.5); POTASSIUM 4.2 mmol/L (3.5-5.1)
[2020-04-05 12:11] VITALS: BP 144/71
[2020-04-06] VITALS (11 sets, daily range): BP systolic 121–156; BP diastolic 55–83
[2020-04-06] MEDS: CEFAZOLIN SODIUM 1 GM VIAL IVP SCH ×2 (06:00→09:57)
[2020-04-06] MEDS ORDERED: LACTATED RINGERS 1000ML 1,000 ML IV ONE (06:36)
[2020-04-06] MEDS ORDERED: MIDAZOLAM HCL 1 MG/ML 2ML VIAL ONE (09:12)
[2020-04-06] MEDS ORDERED: FENTANYL CITRATE PF 50 MCG/1 ML 2ML VIAL ONE (09:13)
[2020-04-06] MEDS ORDERED: LIDOCAINE HCL MPF 1% 5ML VIAL ONE (09:42)
[2020-04-06] MEDS ORDERED: SODIUM BICARB [NEONATAL] 4.2% 10ML SYG ONE (09:42)
[2020-04-06] MEDS ORDERED: ISOVUE-M 200 20 ML VIAL IT ONE (09:44)
[2020-04-06] MEDS ORDERED: LIDOCAINE HCL 1% 20 ML VIAL ONE (09:52)
== END 2020-04-06 11:30 | disposition home or self-care (01) ==
LOC: DAH 05:51
PROVIDERS: ATTEND Neurological Surgery
DX: M53.3 Sacrococcygeal disorders, not elsewhere classified (principal); I10 Essential (primary) hypertension; E78.5 Hyperlipidemia, unspecified; Z20.828 Contact with and (suspected) exposure to other viral communicable diseases
CPT/HCPCS: 36415; 72202; 80048; 85025; 93005; A4215; A4221; A4222; A4223; A4663; A6260; C9803; G0260; J0690; J1030; J2250; J3010; J3490 ×2; J7120 ×2; Q9966; U0003

== ENCOUNTER 2020-08-11 05:57 | Day surgery (SDC) | payer MEDICARE ==
[2020-08-11] VITALS (11 sets, daily range): BP systolic 120–158; BP diastolic 55–99
[~2020-08-11] VITALS: Ht 198.1 cm; Wt 68.0 kg
[~2020-08-11 05:57] MED LIST changes: -CA/MAG/ZINC PO; -CALC-116 PO; -CALCIUM/VIT D PO; -FISH OIL PO; -HYDR25TA PO; -I CAP PO; +LOSA100T58 PO; -LOSA50TA2 PO; -MIRALAX PO; -MULT-660 PO; -OXYB5TAB15 PO; -POTA99TA21 PO; -RESTLESS LEG PO; -UBID200C37 PO; -tylenol arthritis PO
[2020-08-11] MEDS ORDERED: LACTATED RINGERS 1000ML 1,000 ML IV ONE (06:10)
[2020-08-11] MEDS ORDERED: FENTANYL CITRATE PF 50 MCG/1 ML 2ML VIAL ONE (07:02)
[2020-08-11] MEDS ORDERED: MIDAZOLAM HCL 1 MG/ML 2ML VIAL ONE (07:02)
[2020-08-11] MEDS ORDERED: PROPOFOL 10 MG/ML 20ML VIAL IV ONE (07:03)
[2020-08-11] MEDS ORDERED: LIDOCAINE HCL 1% 20 ML VIAL ONE (07:04)
[2020-08-11] MEDS ORDERED: BUPIVACAINE/PF 0.25% 30ML VIAL IJ ONE (07:04)
[2020-08-11] MEDS ORDERED: SODIUM BICARB [NEONATAL] 4.2% 10ML SYG ONE (07:11)
[2020-08-11] MEDS ORDERED: PHARMACY COMMUNICATION MISC SCH (07:45)
[2020-08-11] MEDS ORDERED: IOPAMIDOL 10 ML VIAL ONE (07:51)
== END 2020-08-11 09:30 ==
LOC: DAH 05:57
PROVIDERS: ATTEND Neurological Surgery
DX: M53.3 Sacrococcygeal disorders, not elsewhere classified (principal); I10 Essential (primary) hypertension; M19.90 Unspecified osteoarthritis, unspecified site; Z79.899 Other long term (current) drug therapy
CPT/HCPCS: 72202; A4215; A4221; A4222; A4223 ×2; A4663; A5120; C9803; G0260; J1030; J2250; J2704; J3010; J3490 ×2; J7120; Q9966; U0003; J7030

== ENCOUNTER → 2020-09-10 | Outpatient (CLI) | payer MEDICARE | END | disposition home or self-care (01) | LOC: SHCH 16:51 | PROVIDERS: ATTEND Internal Medicine Cardiovascular Disease | DX: I35.1 Nonrheumatic aortic (valve) insufficiency (principal); R06.00 Dyspnea, unspecified | CPT/HCPCS: 93306; 93356 ==

== ENCOUNTER 2022-01-20 11:06 | Emergency (ER) | payer MEDICARE ==
[~2022-01-20] VITALS: Ht 165.1 cm; Wt 71.2 kg
[2022-01-20 13:50] LABS: BASOPHILS % (AUTO) 0.4 % (0.0-5.0); EOSINOPHILS % (AUTO) 1.8 % (0.0-8.0); HEMATOCRIT 37.9 % (36-48); LYMPHOCYTES % (AUTO) 17.9 % (21.0-51.0); MEAN CORPUSCULAR HEMOGLOBIN 30.6 pg (27.0-33.0); MEAN CORPUSCULAR VOLUME 89.8 fL (79-99); MONOCYTES % (AUTO) 10.8 % (3.0-13.0); NEUTROPHILS % (AUTO) 68.8 % (40.0-77.0); PLATELET COUNT (AUTO) 227 K/uL (130-400); RED BLOOD CELL COUNT(AUTO) 4.22 MIL/uL (4.00-5.50); RED CELL DISTRIBUTION WIDTH 12.3 % (11.0-15.5); WHITE BLOOD COUNT (AUTO) 9.9 K/uL (4.8-10.8)
[2022-01-20] MEDS ORDERED: MORPHINE 2 MG SYG IVP ONE (14:00)
[2022-01-20] MEDS ORDERED: 0.9% NACL 500ML IV.SOLN 500 ML IV ONE (14:00)
[2022-01-20] MEDS ORDERED: ONDANSETRON 4MG INJ IVP ONE (14:00)
[2022-01-20 14:13] LABS: POTASSIUM 4.7 mmol/L (3.5-5.1)
[2022-01-20 14:15] LABS: ALBUMIN 3.9 g/dL (3.5-5.0); TOTAL PROTEIN, SERUM 6.8 g/dL (6.0-8.3)
[2022-01-20] MEDS ORDERED: IOHEXOL 350 MG/ML 100ML INFUS..BTL IV ONE (15:01)
[2022-01-20 15:44] LABS: APPEARANCE,URINE CLEAR (CLEAR); BILIRUBIN,URINE NEGATIVE (NEGATIVE); COLOR,URINE LIGHT-YELLOW (YELLOW); GLUCOSE, URINE (UA) NEGATIVE (NEGATIVE); KETONES,URINE NEGATIVE (NEGATIVE); LEUKOCYTE ESTERASE ,URINE NEGATIVE Leu/uL (NEGATIVE); NITRATE,URINE NEGATIVE (NEGATIVE); OCCULT BLOOD,URINE SMALL (NEGATIVE); PH,URINE 5.5 (5.0-8.0); PROTEIN,URINE NEGATIVE (NEGATIVE); UROBILINOGEN,URINE 0.2 mg/dL (0.2-1.0)
[2022-01-20 15:52] LABS: BACTERIA,URINE RARE /HPF (None Seen); SQUAMOUS EPITHELIAL CELL,UR RARE /HPF (0-2)
[2022-01-20] MEDS ORDERED: TIZA-194 PO (16:08)
[2022-01-20] MEDS ORDERED: ACET-66 PO (16:08)
[2022-01-20 16:16] VITALS: BP 154/68
== END 2022-01-20 16:27 | disposition home or self-care (01) ==
LOC: EDH 11:06
DX: M25.511 Pain in right shoulder (principal); M54.6 Pain in thoracic spine; R06.02 Shortness of breath; R05.9 Cough, unspecified; E78.00 Pure hypercholesterolemia, unspecified; I10 Essential (primary) hypertension; Z98.890 Other specified postprocedural states; Z79.899 Other long term (current) drug therapy
CPT/HCPCS: 99285; 96374; 71260; 96375; 84484; 80053; 85025; 87088; 81001; 36415; 93005; J7040; J2405; Q9967

== ENCOUNTER → 2022-04-13 | Outpatient (CLI) | payer MEDICARE ==
[~2022-04-13] MED LIST changes: +ACET-66 PO; +TIZA-194 PO
== END | disposition home or self-care (01) ==
LOC: LAB 15:45
PROVIDERS: ATTEND Internal Medicine Cardiovascular Disease
DX: I10 Essential (primary) hypertension (principal); I25.10 Atherosclerotic heart disease of native coronary artery without angina pectoris
CPT/HCPCS: 36415; 83880

== ENCOUNTER → 2022-06-02 | Outpatient (CLI) | payer MEDICARE ==
[~2022-06-02] MED LIST changes: +REGADENOSON 0.4 MG/5 ML PF SYG IVP ONE
== END | disposition home or self-care (01) ==
LOC: SHCH 08:08
PROVIDERS: ATTEND Internal Medicine Cardiovascular Disease
DX: I20.9 Angina pectoris, unspecified (principal); I25.9 Chronic ischemic heart disease, unspecified
CPT/HCPCS: 78452; 96374; 93017; J2785; A9500 ×2

== ENCOUNTER 2022-11-07 05:44 | Day surgery (SDC) | payer MEDICARE ==
[2022-11-02 09:40] LABS: APPEARANCE,URINE CLEAR (CLEAR); BILIRUBIN,URINE NEGATIVE (NEGATIVE); COLOR,URINE YELLOW (YELLOW); GLUCOSE, URINE (UA) NEGATIVE (NEGATIVE); KETONES,URINE NEGATIVE (NEGATIVE); LEUKOCYTE ESTERASE ,URINE NEGATIVE Leu/uL (NEGATIVE); NITRATE,URINE NEGATIVE (NEGATIVE); OCCULT BLOOD,URINE SMALL (NEGATIVE); PROTEIN,URINE NEGATIVE (NEGATIVE); UROBILINOGEN,URINE 0.2 mg/dL (0.2-1.0)
[2022-11-02 09:45] LABS: ADD UA MICROSCOPIC YES
[2022-11-02 09:46] VITALS: BP 180/79; PULSE 61; RESP 20
[2022-11-02 09:47] LABS: BACTERIA,URINE RARE /HPF (None Seen); SQUAMOUS EPITHELIAL CELL,UR RARE /HPF (0-2); WBC,URINE 0-1 /HPF (0-1)
[2022-11-02 10:33] LABS: BASOPHILS # (AUTO) 0.03 K/uL (0.00-0.20); BASOPHILS % (AUTO) 0.5 % (0.0-5.0); EOSINOPHILS % (AUTO) 5.1 % (0.0-8.0); HEMATOCRIT 35.4 % (36-48); IMMATURE GRANULOCYTE ABSOLUTE 0.02 K/uL (0-1); LYMPHOCYTES # (AUTO) 1.2 K/uL (1.0-4.8); LYMPHOCYTES % (AUTO) 20.7 % (21.0-51.0); MEAN CORPUSCULAR HEMOGLOBIN 31.2 pg (27.0-33.0); MEAN CORPUSCULAR HGB CONC 32.8 g/dL (32.0-36.0); MEAN CORPUSCULAR VOLUME 95.2 fL (79-99); MONOCYTES % (AUTO) 17.3 % (3.0-13.0); NEUTROPHILS # (AUTO) 3.3 K/uL (1.8-7.7); NEUTROPHILS % (AUTO) 56.1 % (40.0-77.0); PLATELET COUNT (AUTO) 214 K/uL (130-400); RED BLOOD CELL COUNT(AUTO) 3.72 MIL/uL (4.00-5.50); RED CELL DISTRIBUTION WIDTH 13.2 % (11.0-15.5); WHITE BLOOD COUNT (AUTO) 5.9 K/uL (4.8-10.8)
[2022-11-02 10:42] LABS: CREATININE 1.1 mg/dL (0.5-1.5); POTASSIUM 4.1 mmol/L (3.5-5.1)
[2022-11-02 10:43] LABS: INR 1.06 (0.85-1.15); PROTHROMBIN TIME 12.2 SEC (9.6-11.6)
[2022-11-02 10:44] LABS: PARTIAL THROMBOPLASTIN TIME 32.8 SEC (26.3-35.5)
[2022-11-02 10:59] LABS: B-TYPE NATRIURETIC PEPTIDE 309 pg/mL (0-100)
[~2022-11-07] VITALS: Ht 167.6 cm; Wt 75.9 kg
[2022-11-07] VITALS (9 sets, daily range): BP systolic 105–139; BP diastolic 46–68; PULSE 52–59; RESP 11–16
[~2022-11-07 05:44] MED LIST changes: +ACET-3540 PO; -ACET-66 PO; +BIOTIN PO; +CEPH500T PO; +GLUC-29 PO; -LOSA100T58 PO; +LOSA100T59 PO; +METO-408 PO; +MULT-1250 PO; +POTA99CA PO; -REGADENOSON 0.4 MG/5 ML PF SYG IVP ONE; -TIZA-194 PO; +TURM500C9 PO; +UBID1CAP56 PO; +VIT-12 PO; +VITA1CAP85 PO; +VITAMIN D3 PO
[2022-11-07] MEDS ORDERED: ISOVUE-300 100 ML VIAL IV ONE (05:45)
[2022-11-07] MEDS ORDERED: 0.9%NACL 1000ML 1,000 ML IV ONE (06:35)
[2022-11-07] MEDS ORDERED: MIDAZOLAM HCL 1 MG/ML 2ML VIAL ONE (07:11)
[2022-11-07] MEDS ORDERED: LIDOCAINE HCL 400MG/20ML VIAL ONE (07:11)
[2022-11-07] MEDS ORDERED: HEPARIN 10,000 UNIT/10ML (1,000 UNIT/ML) VIAL ONE (07:11)
[2022-11-07] MEDS ORDERED: HYDRALAZINE 20MG/ML VIAL ONE (07:44)
== END 2022-11-07 12:00 | disposition home or self-care (01) ==
LOC: DAH 05:44
PROVIDERS: ATTEND Internal Medicine Cardiovascular Disease
DX: I25.118 Atherosclerotic heart disease of native coronary artery with other forms of angina pectoris (principal); I35.0 Nonrheumatic aortic (valve) stenosis; I10 Essential (primary) hypertension; E78.5 Hyperlipidemia, unspecified; M16.11 Unilateral primary osteoarthritis, right hip; Z90.89 Acquired absence of other organs; Z98.890 Other specified postprocedural states; Z90.710 Acquired absence of both cervix and uterus; Z82.49 Family history of ischemic heart disease and other diseases of the circulatory system; Z87.891 Personal history of nicotine dependence; Z86.718 Personal history of other venous thrombosis and embolism; Z79.01 Long term (current) use of anticoagulants; Z79.899 Other long term (current) drug therapy
CPT/HCPCS: 80048; 83880; 85025; 85610; 85730; 81001; 36415; 71045; 93005; 93458; C1894; C1760; Q9967; J3490; J7030; J0360; J1644; A4215; A4222; A4221; A4663; A4216; A4606; A4520; A4223 ×3; A4554; J2250

== ENCOUNTER → 2023-03-30 | Outpatient (CLI) | payer MEDICARE ==
[2023-03-30 12:34] LABS: BASOPHILS # (AUTO) 0.04 K/uL (0.00-0.20); BASOPHILS % (AUTO) 0.6 % (0.0-5.0); EOSINOPHILS # (AUTO) 0.19 K/uL (0.00-0.70); HEMATOCRIT 37.9 % (36-48); IMMATURE GRANULOCYTE ABSOLUTE 0.01 K/uL (0-1); LYMPHOCYTES # (AUTO) 1.8 K/uL (1.0-4.8); LYMPHOCYTES % (AUTO) 28.2 % (21.0-51.0); MEAN CORPUSCULAR HEMOGLOBIN 31.2 pg (27.0-33.0); MEAN CORPUSCULAR HGB CONC 32.5 g/dL (32.0-36.0); MEAN CORPUSCULAR VOLUME 96.2 fL (79-99); MONOCYTES # (AUTO) 0.9 K/uL (0.1-1.0); MONOCYTES % (AUTO) 13.7 % (3.0-13.0); NEUTROPHILS # (AUTO) 3.5 K/uL (1.8-7.7); NEUTROPHILS % (AUTO) 54.3 % (40.0-77.0); PLATELET COUNT (AUTO) 271 K/uL (130-400); RED BLOOD CELL COUNT(AUTO) 3.94 MIL/uL (4.00-5.50); RED CELL DISTRIBUTION WIDTH 13.2 % (11.0-15.5); WHITE BLOOD COUNT (AUTO) 6.4 K/uL (4.8-10.8)
[2023-03-30 13:07] LABS: CREATININE 0.9 mg/dL (0.5-1.5); POTASSIUM 4.3 mmol/L (3.5-5.1); THYROID STIMULATING HORMONE 5.39 uIU/mL (0.36-3.74)
== END | disposition home or self-care (01) ==
LOC: LAB 09:56
PROVIDERS: ATTEND Internal Medicine Cardiovascular Disease
DX: I10 Essential (primary) hypertension (principal); Z79.899 Other long term (current) drug therapy
CPT/HCPCS: 36415; 80048; 82652; 84443; 85025

== ENCOUNTER → 2023-06-18 | Outpatient (CLI) | payer MEDICARE | END | disposition home or self-care (01) | LOC: RAH 13:28 | PROVIDERS: ATTEND Family Medicine | DX: Z12.31 Encounter for screening mammogram for malignant neoplasm of breast (principal) | CPT/HCPCS: 77067 ==

== ENCOUNTER 2024-03-07 10:19 | Inpatient (IN) | payer MEDICARE ==
[~2024-03-07] VITALS: Ht 162.6 cm; Wt 71.7 kg
--- NOTE | 2024-03-07 10:30 | ERN ---
ED Note History of Present Illness Stated Complaint: LEFT FLANK PAIN Chief Complaint: Flank Pain Time Seen by MD: 10:23 Dictation: PATIENT IS AN 88-YEAR-OLD FEMALE COMING IN TODAY WITH LEFT INFERIOR ANTERIOR CHEST PAIN THAT RADIATES TO LEFT SHOULDER ONSET YESTERDAY. NO NAUSEA VOMITING NO FEVER NO CHILLS. PAIN IS WORSE WHEN SHE PALPATES. ALSO UNCOMFORTABLE LYING FLAT ON THE STRETCHER. Allergies: Coded Allergies: No Known Allergies (Unverified Allergy, Unknown, 01/16/19) Home Meds Reported Medications [Vitamin D3] No Conflict Check, 5000 UNITS PO DAILY 11/02/22 Metoprolol Succinate (Metoprolol Succinate) 25 Mg Tab.er.24h, 25 MG PO DAILY, TAB 11/02/22 Acetaminophen/Diphenhydramine (Tylenol Pm Exstr 500-25Mg Cplt) 1 Each Tablet, 1 EACH PO HS, TAB 11/02/22 Glucosa Hagen 2Kcl/Chondroitin Hagen (Glucosamine & Chondroitin Cap) 1 Each Capsule, 1 EACH PO DAILY, CAP 11/02/22 Turmeric Root Extract (Turmeric) 500 Mg Capsule, 500 MG PO DAILY, CAP 11/02/22 [Biotin] No Conflict Check, 5000 MG PO DAILY 11/02/22 Potassium Citrate (Potassium) 99 Mg Capsule, 99 MG PO DAILY, CAP 11/02/22 Vitamin B Complex (Vitamin B Complex) 1 Each Capsule, 1 EACH PO DAILY, CAP 11/02/22 Ubidecarenone/Vit E Acetate (Co Q-10 100 mg Softgel) 1 Each Capsule, 1 EACH PO DAILY, CAP 11/02/22 Vit A/C/E/Zinc/Selenium/Copper (Vision Formula Tablet) 1 Each Tablet, 1 EACH PO DAILY, TAB 11/02/22 Multivits-Min/Iron/FA/Lutein (Centrum Silver Women Tablet) 1 Each Tablet, 1 EACH PO DAILY, TAB 11/02/22 Cephalexin (Cephalexin) 500 Mg Tablet, 500 MG PO BID, TAB RIGHT LEG WOUND 11/02/22 Losartan Potassium (Losartan Potassium) 100 Mg Tablet, 100 MG PO HS, TAB 08/10/20 Apixaban (Eliquis) 5 Mg Tablet, 5 MG PO BID, TAB 11/19/19 Pravastatin Sodium (Pravastatin Sodium) 10 Mg Tablet, 10 MG PO HS, TAB 02/05/17 Past Medical History Past Medical History: Diabetes-Type II, High Cholesterol, Hypertension Surgical History: Other Surgical History Other: BACK PSYCH History: no pertinent psych hx History: Not Applicable RN Note Reviewed/Agreed w/PFSH: Yes Review of System Dictation CONSTITUTIONAL: NEGATIVE EXCEPT FOR HPI HEAD/FACE: NEGATIVE EXCEPT FOR HPI EENT: NEGATIVE EXCEPT FOR HPI RESPIRATORY: NEGATIVE EXCEPT FOR HPI LEFT ANTERIOR CHEST PAIN TENDERNESS INFERIOR GASTROINTESTINAL/ABDOMINAL: NEGATIVE EXCEPT FOR HPI GENITOURINARY: NEGATIVE EXCEPT FOR HPI MUSCULOSKELETAL: NEGATIVE EXCEPT FOR HPI INTEGUMENTARY: NEGATIVE EXCEPT FOR HPI NEUROLOGICAL/PSYCH: NEGATIVE EXCEPT FOR HPI HEMATOLOGIC/LYMPHATIC: NEGATIVE EXCEPT FOR HPI ALL SYSTEMS NEGATIVE, EXCEPT NOTED ABOVE. 13 POINT REVIEW OF SYSTEMS ASSESSED AND ALL NEGATIVE EXCEPT FOR ABOVE. Initial Vital Sign VS Vital Signs Date Time Temp Pulse Resp B/P (MAP) Pulse Ox O2 Delivery O2 Flow Rate FiO2 03/07/24 10:19 98.4 84 20 175/90 99 Room Air 0 03/07/24 11:23 21 Physical Exam Dictation VITAL SIGNS REVIEWED GENERAL APPEARANCE: ALERT, ORIENTED X 3, SEVERE ACUTE DISTRESS, WELL DEVELOPED, NOURISHED. HEAD AND FACE: NON-TRAUMATIC. EYES: PERRL, PINK CONJUNCTIVAS, EYELID NO TRAUMA, ANTERIOR CHAMBER WITH ARCUS SENILIS. EARS: PINNAS INTACT AND NO SIGNS OF TRAUMA OR ERYTHEMA EAR CANALS CLEAR AND NO DISCHARGE TM NO ERYTHEMA NOSE: NO DISCHARGE, NO BLEEDING. OROPHARYNX: MOUTH NORMAL, TONGUE PINK, PHARYNX CLEAR,NO ERYTHEMA, TONSILS NO EXUDATES, NO ABSCESSES NOTED, MUCOUS MEMBRANE MOIST NECK: SUPPLE, NON-TENDER, NO THYROMEGALY, NO MASSES, NO JVD, NO BRUITS BREAST:DEFERRED CHEST: MODERATE LEFT ANTERIOR INFERIOR CHEST WALL TENDERNESS WITH PALPATION TENDERNESS, NO CREPITUS, NO PARADOXICAL MOVEMENT, NO RETRACTIONS LUNGS:CLEAR, WELL-VENTILATED, SYMMETRIC, NO RALES, NO WHEEZING, NO RHONCHI, NO STRIDOR, GOOD BREATH SOUNDS BILATERALLY HEART: REGULAR RATE, REGULAR RHYTHM, NO MURMUR, NO GALLOPS VASCULAR: NO PERIPHERAL EDEMA, ABDOMEN: SOFT, POSITIVE BOWEL SOUNDS, NONDISTENDED, NO GUARDING, NONTENDER, NO REBOUND, NO MASSES NO HEPATOMEGALY, NO SPLENOMEGALY, NO CASSIDY'S SIGN, NO HERNIAS. NO FOCAL PAIN RECTAL: DEFERRED GENITAL: DEFERRED NEUROLOGICAL: NORMAL SPEECH, MOTOR FUNCTION INTACT, SENSORY FUNCTION INTACT MUSCULOSKELETAL: NECK NONTENDER, FULL RANGE OF MOTION, BACK NONTENDER, FULL RANGE OF MOTION, EXTREMITIES: NONTENDER, FULL RANGE OF MOTION SKIN: COLOR PINK, DRY, NO TURGOR, NO RASH, NO LACERATIONS, NO ABRASIONS, NO CONTUSIONS. LYMPHATIC: DEFERRED Results (Laboratory/Radiology) Laboratory/Radiology Laboratory Tests Test 03/07/24 10:37 03/07/24 10:43 White Blood Count 6.4 K/uL (4.8-10.8) Red Blood Count 3.97 MIL/uL (4.00-5.50) L Hemoglobin 12.5 g/dL (12.0-16.0) Hematocrit 38.0 % (36-48) Mean Corpuscular Volume 95.7 fL (79-99) Mean Corpuscular Hemoglobin 31.5 pg (27.0-33.0) Mean Corpuscular Hemoglobin Concent 32.9 g/dL (32.0-36.0) Red Cell Distribution Width 12.6 % (11.0-15.5) Platelet Count 216 K/uL (130-400) Mean Platelet Volume 9.5 fL (7.5-10.5) Immature Granulocyte % (Auto) 0.3 % (0-1) Neutrophils (%) (Auto) 63.8 % (40.0-77.0) Lymphocytes (%) (Auto) 23.2 % (21.0-51.0) Monocytes (%) (Auto) 9.1 % (3.0-13.0) Eosinophils (%) (Auto) 2.8 % (0.0-8.0) Basophils (%) (Auto) 0.8 % (0.0-5.0) Neutrophils # (Auto) 4.1 K/uL (1.8-7.7) Lymphocytes # (Auto) 1.5 K/uL (1.0-4.8) Monocytes # (Auto) 0.6 K/uL (0.1-1.0) Eosinophils # (Auto) 0.18 K/uL (0.00-0.70) Basophils # (Auto) 0.05 K/uL (0.00-0.20) Absolute Immature Granulocyte (auto 0.02 K/uL (0-1) Nucleated Red Blood Cells 0.0 % (0.0-0.19) Sodium Level 143 mmol/L (136-145) Potassium Level 4.3 mmol/L (3.5-5.1) Chloride Level 106 mmol/L (101-111) Carbon Dioxide Level 29 mmol/L (21-32) Blood Urea Nitrogen 22 mg/dL (7-18) H Creatinine 1.0 mg/dL (0.5-1.0) Glomerular Filtration Rate Calc 54 mL/min (>90) Random Glucose 87 mg/dL (70-105) Total Calcium 8.9 mg/dL (8.5-10.1) Lipase 13 U/L (16-77) L Urine Color LIGHT-YELLOW (YELLOW) Urine Appearance CLEAR (CLEAR) Urine pH 6.5 (5.0-8.0) Urine Specific Orange 1.021 (1.001-1.031) Urine Protein NEGATIVE mg/dL (NEGATIVE) Urine Glucose (UA) NEGATIVE mg/dL (NEGATIVE) Urine Ketones NEGATIVE mg/dL (NEGATIVE) Urine Occult Blood NEGATIVE (NEGATIVE) Urine Nitrate NEGATIVE (NEGATIVE) Urine Bilirubin NEGATIVE mg/dL (NEGATIVE) Urine Urobilinogen 0.2 mg/dL (0.2-1.0) Urine Leukocyte Esterase NEGATIVE Carlene/uL 1107, CHEST X-RAY NEGATIVE CT ABDOMEN/PELVIS W/CONTRAST REASON: LEFT UPPER QUADRANT PAIN TENDERNESS COMPARISON: None. TECHNIQUE: Images are obtained from lung bases to symphysis pubis following IV contrast, 100 cc Omnipaque 350. FINDINGS: Lung bases are clear. There are no focal liver lesions. There are normal-appearing kidneys.. Spleen and pancreas appear unremarkable. The gallbladder appears normal as well. There is a ventral hernia in the anterior abdominal midline just above the umbilicus. A portion of the gastric antrum is within the hernia. The proximal portion of the stomach is fluid-filled and moderately distended, this may reflect a partial outlet obstruction. There is no wall thickening or edema to suggest strangulation. . Remaining bowel loops appear unremarkable. The appendix was visualized and appears normal. There is no evidence of free fluid or intraperitoneal air. There are no focal fluid collections. Aorta and retroperitoneum appear normal as do pelvic soft tissue structures. The anterior abdominal wall is intact. 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 There are postoperative changes in the lumbar spine. IMPRESSION: 1. Moderate-sized ventral hernia in the anterior abdominal midline, this contains a portion of the gastric antrum, the proximal stomach is mildly distended and fluid-filled suggesting a component of outlet obstruction. CT was performed with one or more following dose reduction techniques: automated exposure control, adjustment of the mA and kv according to patient's size, or use of a iterative reconstruction technique. Labs Reviewed?: Yes EKG Comment: EKG SINUS ARRHYTHMIA/HEART RATE 65/AXIS NORMAL PLZ NOTE THAT TROPONIN NOT DRAWN ED Course ED Course Orders Procedure Category Date Status Time Vital Signs Per CPOE 03/07/24 Transmitted Routine 10: Strain All Urine CPOE 03/07/24 Transmitted Output From : Cbc With Differential LAB 03/07/24 Complete 10: Saline Lock Iv CPOE 03/07/24 Transmitted 10:22 Basic Metabolic Panel LAB 03/07/24 Complete 10: Urinalysis Profile LAB 03/07/24 Complete 10: 12 Lead Ekg Tracing- EKG 03/07/24 Resulted Technical 10: Chest 1vw RAD 03/07/24 Resulted 10:27 Ketorolac PHA 03/07/24 Complete Tromethamine 15mg/Ml 10:30 Morphine 2mg Syg PHA 03/07/24 Complete (Morphine 2mg Syg) 10:30 Ondansetron 4mg Inj PHA 03/07/24 Complete (Zofran 4mg Inj) 10:30 Lipase LAB 03/07/24 Complete 10:22 Ct Abdomen/Pelvis CT 03/07/24 Resulted W/Contrast 12:18 Morphine 2mg Syg PHA 03/07/24 Complete (Morphine 2mg Syg) 15:00 Admit Orders ADM 03/07/24 Transmitted 15:29 Edm Admit Bridge Order ADM 03/07/24 Transmitted 15:29 Vital Signs(Adult CPOE 03/07/24 Transmitted Hospitalist) 15:29 I&O Q Shift CPOE 03/07/24 Transmitted 15:29 Acetaminophen 325 Tab PHA 03/07/24 In Process (Tylenol 325mg Tab 15:30 Lactulose 20 Gm/30 Ml PHA 03/07/24 In Process Udcup (Constulose 15:30 Famotidine 20mg Vial PHA 03/07/24 In Process (Pepcid 20mg Vial) 21:00 Npo Except Ice Chips CPOE 03/07/24 Transmitted & Meds 15:29 Docusate Sodium 100 PHA 03/07/24 In Process Mg Cap (Colace 100mg 15:30 Polyethylene Glycol PHA 03/07/24 In Process 3350 (Miralax 3350 1 15:30 Admit Orders ADM 03/07/24 Transmitted 15:29 Activity: Br W/Brp CPOE 03/07/24 Transmitted With Assist 15:29 Initiate SABI 03/07/24 In Process Hyperglycemia Protoco 15:29 Insulin Regular, PHA 03/07/24 In Process Human 3ml (Humulin R 18:00 Initiate Npo SABI 03/07/24 In Process Hypokalemia Henry 15:29 Potassium Chloride PHA 03/07/24 In Process 20meq/100ml (Potassiu 15:30 Notify Physician If CPOE 03/07/24 Transmitted There Is 15:29 Notify Md On The Next CPOE 03/07/24 Transmitted 15:29 Notify Md On The CPOE 03/07/24 Transmitted Next(Cont.) 15:29 Initiate Po SABI 03/07/24 In Process Hypokalemia Protoc 15:29 Potassium Chloride PHA 03/07/24 Complete 20meq/100ml (Potassiu 15:30 Potassium Chl 10% PHA 03/07/24 In Process Elixir 20meq (Kcl 10% 15:30 Potassium Chloride PHA 03/07/24 In Process 20meq Er (K-Dur/Klor- 15:30 Notify Physician If CPOE 03/07/24 Transmitted There Is 15:29 Notify Md On The Next CPOE 03/07/24 Transmitted 15:29 Notify Md On The CPOE 03/07/24 Transmitted Next(Cont.) 15:29 Magnesium 2gm Premix PHA 03/07/24 In Process 50ml (Magnesium 2gm 15:30 Ngt To Low CPOE 03/07/24 Transmitted Intermittent Suctn 15:33 Enoxaparin Sodium 30 PHA 03/07/24 In Process Mg/0.3 Ml (Lovenox) 17:00 0.9%Nacl 1000ml (Ns PHA 03/07/24 In Process 1000ml) 17:00 General Surgery CONPHYSVC 03/07/24 Transmitted Consult 16:53 *Nursing CPOE 03/07/24 Transmitted Communication: 17:12 Current Medications Medications (Trade) Dose Ordered Sig/Morena Route PRN Reason Start Time Stop Time Status Last Admin Dose Admin Ketorolac Tromethamine (toRADol) 15 mg ONCE ONCE IV 03/07/24 10:30 03/07/24 10:31 DC 03/07/24 11:39 Morphine Sulfate (morPHINE 2MG SYG) 2 mg ONCE ONCE IVP 03/07/24 10:30 03/07/24 10:31 DC 03/07/24 11:39 Morphine Sulfate (morPHINE 2MG SYG) 2 mg ONCE ONCE IVP 03/07/24 15:00 03/07/24 15:05 DC 03/07/24 15:43 Ondansetron HCl (zoFRAN 4MG INJ) 4 mg ONCE ONCE IVP 03/07/24 10:30 03/07/24 10:31 DC 03/07/24 11:39 Vital Signs Date Time Temp Pulse Resp B/P (MAP) Pulse Ox O2 Delivery O2 Flow Rate FiO2 03/07/24 16:16 98.4 55 18 154/37 95 Room Air* 0 21 03/07/24 14:27 98.4 56 18 150/69 97 Room Air* 0 03/07/24 11:23 98.4 61 18 164/59 98 Room Air* 0 21 03/07/24 10:19 98.4 84 20 175/90 99 Room Air 0 1455, PATIENT STATES PAIN IS NOW DOWN TO 3/10 REMAINS IN HER LEFT UPPER QUADRANT AND RADIATES AROUND TO THE BACK. CT DEMONSTRATES SHE HAS A VENTRAL HERNIA WITH HERNIATION OF HER ANTRUM OF HER STOMACH CAUSING POSSIBLE GASTRIC OUTLET SYNDROME. THIS WAS EXPLAINED TO PATIENT SHE AGREED TO BE ADMITTED TO THE HOSPITAL FOR EVALUATION BY A INVESTMENT CONSULTANT VERSUS SURGERY. 1528 SPOKE WITH DEBI [facility] HOSPITALIST AND REVIEWED CT CHEST X-RAY LABS EKG HE AGREED TO ADMIT PATIENT. Medical Decision Making MDM MDM: DIFFERENTIAL DIAGNOSIS: ACS/AMI/HERNIA/PANCREATITIS/DIVERTICU LITIS/NEPHROLOGY/HYDRONEPHROSIS RATIONALE: TESTS CONSIDERED AND ORDERED SECONDARY TO SHARED DECISION MAKING INCLUDE: LABS, ECG AND RADIOLOGY PREVIOUS OUTSIDE RECORDS REVIEWED: OLD ER VISITS. REVIEWED RISK OF COMPLICATION AND/OR MORBIDITY OR MORTALITY OF PATIENT MANAGEMENT: MILD MEDICATIONS-PER MEDICATION RECONCILIATION SEE NURSE'S NOTES NEED FOR HOSPITALIZATION: PATIENT DOES MEET CRITERIA FOR HOSPITALIZATION. YES PATIENT WILL NEED SURGICAL VERSUS GI CONSULTATION AND MANAGEMENT OF PAIN NEED FOR EMERGENCY MAJOR/MINOR SURGERY: NO THERE ARE NO SOCIAL CONCERNS WITH THIS PATIENT. PRESCRIPTION DRUG MANAGEMENT PRESCRIPTIONS WILL INCLUDE SYMPTOMATIC CARE PATIENT'S PRIOR EXTERNAL MEDICAL RECORDS FROM OTHER ER VISITS WERE REVIEWED BY ME INDICATED. PRIOR TESTING AND RESULTS FROM PREVIOUS VISITS WERE REVIEWED. PRIOR TESTS WERE TAKEN INTO ACCOUNT WITH MEDICAL DECISION MAKING AND RESOURCE UTILIZATION, INDEPENDENT HISTORIAN/HISTORIANS WERE USED TO OBTAIN COMPLETE MEDICAL HISTORY. I INDEPENDENTLY INTERPRETED THE TEST THAT WERE PERFORMED, RESULTS WERE REVIEWED BY ME AND CONSIDERED FINDINGS ON RADIOLOGY IF ORDERED. MEDICAL MANAGEMENT AND EXAMINATION INTERPRETATION DISCUSSIONS WERE HAD BY ME WITH OTHER QUALIFIED HEALTHCARE PROFESSIONALS INDICATED FOR THE PATIENT'S CARE. DX & DISP Disposition: Inpatient Decision to Admit Time: 15:29 Departure Impression: Primary Impression: Partial gastric outlet obstruction Additional Impressions: Ventral hernia, Intractable abdominal pain, Dehydration Condition: Stable Referrals: BARTOLO ORTEGA MD (PCP) Time of Disposition: 14:56 I have reviewed the case, and I agree with, Diagnosis and Plan I performed a substantive portion of the visit. I have reviewed and personally made and approve the management plan that is documented in the notes by myself with NAZ/resident. I acknowledged full responsibility for the patient's management plan. KYRA SHELDON NP Mar 07, 2024 10:30 SHARA HERNANDEZ DO Mar 07, 2024 18:25
[2024-03-07 10:50] LABS: BASOPHILS # (AUTO) 0.05 K/uL (0.00-0.20); BASOPHILS % (AUTO) 0.8 % (0.0-5.0); EOSINOPHILS # (AUTO) 0.18 K/uL (0.00-0.70); EOSINOPHILS % (AUTO) 2.8 % (0.0-8.0); IMMATURE GRANULOCYTE ABSOLUTE 0.02 K/uL (0-1); LYMPHOCYTES # (AUTO) 1.5 K/uL (1.0-4.8); LYMPHOCYTES % (AUTO) 23.2 % (21.0-51.0); MEAN CORPUSCULAR HEMOGLOBIN 31.5 pg (27.0-33.0); MEAN CORPUSCULAR HGB CONC 32.9 g/dL (32.0-36.0); MEAN CORPUSCULAR VOLUME 95.7 fL (79-99); MONOCYTES # (AUTO) 0.6 K/uL (0.1-1.0); MONOCYTES % (AUTO) 9.1 % (3.0-13.0); NEUTROPHILS # (AUTO) 4.1 K/uL (1.8-7.7); NEUTROPHILS % (AUTO) 63.8 % (40.0-77.0); PLATELET COUNT (AUTO) 216 K/uL (130-400); RED BLOOD CELL COUNT(AUTO) 3.97 MIL/uL (4.00-5.50); RED CELL DISTRIBUTION WIDTH 12.6 % (11.0-15.5); WHITE BLOOD COUNT (AUTO) 6.4 K/uL (4.8-10.8)
--- NOTE | 2024-03-07 10:50 | EKG ---
[facility] Test Date: 2024-03-07 Test Time: 10:25:59 Pat Name: YUDY REYES Department: [facility] Room: Gender: F Hoister: [id number] : 1935 Requested By: SHARA HERNANDEZ Order Number: [id number] Reading MD: Connie Arriaza Measurements Intervals [place] Rate: 65 P: 58 PA: 181 QRS: -9 QRSD: 89 T: 57 QT: 427 QTc: 444 Interpretive Statements Sinus arrhythmia Compared to ECG 11/02/2022 09:29:28 Sinus rhythm no longer present Electronically Signed On 03-07-2024 13:33:55 EMERGENCY MANAGER by Connie Arriaza Please click the below link to view image of tracing.
[2024-03-07 10:57] LABS: POTASSIUM 4.3 mmol/L (3.5-5.1)
--- NOTE | 2024-03-07 11:13 | HMCIMG ---
CHEST 1VW REASON: LEFT ANTERIOR CHEST PAIN COMPARISON: 11/02/2022 FINDINGS: Single view of the chest was obtained. Lungs are clear. Heart size is normal. There is no pulmonary vascular congestion. Mediastinum and bony thorax appear unremarkable. IMPRESSION: 1. Normal single view chest x-ray.
[2024-03-07] MEDS: ketOROlac 15MG/ML VIAL (15MG/ML) IV ONE (11:39)
[2024-03-07] MEDS: morPHINE 2 MG SYG IVP ONE ×2 (11:39→15:43)
[2024-03-07] MEDS: ondanSETRON 4MG INJ IVP ONE (11:39)
[2024-03-07 11:54] LABS: APPEARANCE,URINE CLEAR (CLEAR); BILIRUBIN,URINE NEGATIVE (NEGATIVE); COLOR,URINE LIGHT-YELLOW (YELLOW); GLUCOSE, URINE (UA) NEGATIVE (NEGATIVE); KETONES,URINE NEGATIVE (NEGATIVE); LEUKOCYTE ESTERASE ,URINE NEGATIVE Leu/uL (NEGATIVE); NITRATE,URINE NEGATIVE (NEGATIVE); OCCULT BLOOD,URINE NEGATIVE (NEGATIVE); PH,URINE 6.5 (5.0-8.0); PROTEIN,URINE NEGATIVE (NEGATIVE); UROBILINOGEN,URINE 0.2 mg/dL (0.2-1.0)
[2024-03-07 11:59] LABS: ADD UA MICROSCOPIC NO
--- NOTE | 2024-03-07 14:28 | HMCIMG ---
CT ABDOMEN/PELVIS W/CONTRAST REASON: LEFT UPPER QUADRANT PAIN TENDERNESS COMPARISON: None. TECHNIQUE: Images are obtained from lung bases to symphysis pubis following IV contrast, 100 cc Omnipaque 350. FINDINGS: Lung bases are clear. There are no focal liver lesions. There are normal-appearing kidneys.. Spleen and pancreas appear unremarkable. The gallbladder appears normal as well. There is a ventral hernia in the anterior abdominal midline just above the umbilicus. A portion of the gastric antrum is within the hernia. The proximal portion of the stomach is fluid-filled and moderately distended, this may reflect a partial outlet obstruction. There is no wall thickening or edema to suggest strangulation. . Remaining bowel loops appear unremarkable. The appendix was visualized and appears normal. There is no evidence of free fluid or intraperitoneal air. There are no focal fluid collections. Aorta and retroperitoneum appear normal as do pelvic soft tissue structures. The anterior abdominal wall is intact. 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 There are postoperative changes in the lumbar spine. IMPRESSION: 1. Moderate-sized ventral hernia in the anterior abdominal midline, this contains a portion of the gastric antrum, the proximal stomach is mildly distended and fluid-filled suggesting a component of outlet obstruction. CT was performed with one or more following dose reduction techniques: automated exposure control, adjustment of the mA and kv according to patient's size, or use of a iterative reconstruction technique.
[2024-03-07] MEDS ORDERED: polyETHYLene GLYCol 3350 17 GM POWD.PACK PO PRN (15:30)
[2024-03-07] MEDS ORDERED: doCUSate SODIUM 100 MG CAP PO PRN (15:30)
[2024-03-07] MEDS ORDERED: PoTASSium chloRIDE 20MEQ/100ML 100 ML IV PRN ×2 (15:30)
[2024-03-07] MEDS ORDERED: MAGNESIUM 2GM PREMIX 50ML 50 ML IV PRN (15:30)
[2024-03-07] MEDS ORDERED: PoTASSium chl 10% ELIXIR 20MEQ 20 MEQ/15 ML UDCUP PO PRN (15:30)
[2024-03-07] MEDS: 0.9%NACL 1000ML 1,000 ML IV SCH (17:00)
[2024-03-07] MEDS: ENOXAPARIN SODIUM 30 MG/0.3 ML SQ SCH (17:00)
--- NOTE | 2024-03-07 17:00 | NUR ---
DID NOT GIVE LOVENOX DUE TO PATIENT GOING FOR SURGERY TOMORROW IN AM WITH DR. REGALADO
--- NOTE | 2024-03-07 18:57 | NUR ---
CALLED MR. CHILEL AIRCRAFT POWERPLANT REPAIRER TO CLARIFY ORDER FOR SURGERY. HE STATED JUST TO LEAVE PATIENT NPO, PLACE NASOGSTRIC TUBE, ND DR. REGALADO WILL CLARIFY TOMORROW ORDER FOR SURGERY.
--- NOTE | 2024-03-07 19:00 | NUR ---
CALLED [facility] FOR REPORT. MRS. MANUEL KEESHA. SHE SAMAN TO CALL BACK IN 15 MINUTES BECAUSE NURSE THAT WILL RECEIVE PATIENT IS BUSY RECEIVING REPORT.
--- NOTE | 2024-03-07 19:00 | NUR ---
PLACE NASOGSTRIC TUBE IN LEFT CARVAJAL 16FR, CONNECTED IT TO WALL LOW INTERMITENT SUCTION.
--- NOTE | 2024-03-07 19:15 | NUR ---
CALLED TO [facility]. NO ANSWER.
--- NOTE | 2024-03-07 19:33 | NUR ---
CALLED FOR REPORT, SPOKE TO MR. MONGE CHARGE NURSE. HE STATED THAT MRS. NAYANA THAO IS STILL GETTING REPORT FROM PREVIOUS SHIFT. WILL CALL BACK IN 15 MINUTES.
--- NOTE | 2024-03-07 19:53 | NUR ---
CALLED [facility] FOR REPORT, SPOKE WITH MRS. NAYANA THAO. GAVE HER REPORT.
[2024-03-07 20:05] VITALS: O2SAT 98
[2024-03-07 20:10] VITALS: BP 161/70; PULSE 56; RESP 18; TEMP 97.4
--- NOTE | 2024-03-07 21:40 | HP ---
[facility] HISTORY & PHYSICAL Date Patient Seen: Mar 07, 2024 Time of Visit: 21:40 Supervising Physician: Dr. Naranjo Primary Care Physician: Dr. La Nena Olsen Outpatient Specialists: Inpatient Consults: Dr. 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 Lucas is an 88-year-old female who presented to [facility] [place] evaluation of left abdominal pain the radiate to the back, nausea, and vomiting onset yesterday. The patient reported the pain was worse with palpation. The patient had a history of gastric band and then gastric band removal. Patient reported the pain worsened which prompted her to come to the ED. CT scan was ob tained. CT scan shows a ventral hernia with a portion of the stomach actually the antrum of the stomach within the hernia causing obstruction. Prior to onset of symptoms patient was tolerating a regular diet, having regular bowel function. Patient denied any melena, hematochezia, and hematuria. Remarkable lab results: RBC 3.97, BUN 22, GFR 54. ED administered morphine [address] an NG tube. Patient was seen and assessed at bedside in 416. The patient appeared comfortable, in no distress, breathing was even and unlabored. The patient reports that the pain was improved with the morphine and the NG tube that was started in the ED. I informed the patient of labs, diagnostics, and plan of care. The patient verbalized understanding and is in agreement with the plan. Plan and assessment are listed below. PAST MEDICAL HX: see above PAST SURGICAL HX: [Laparoscopic gastric restrictive band and laparoscopic band removal ] SOCIAL HISTORY: No tobacco, ETOH, or illicit drug use Coded Allergies: No Known Allergies (Unverified Allergy, Unknown, 01/16/19) REVIEW OF SYSTEMS: 12 point ROS reviewed with patient. Pertinent positives mentioned above. Otherwise negative. PHYSICAL EXAM: GENERAL: alert, weak, awake oriented x 3 HEENT: EOMI, Sclera non icteric, moist mucosa NECK: Supple, no JVD, trachea midline LUNGS: Clear breath sounds bilaterally. No wheezes HEART: Regular rate and rhythm. Normal S1 and S2, without murmurs ABD: Left upper abdomen: Firm. Remaining abdomen: soft, nontender. Bowel sounds present EXT: No clubbing cyanosis or edema NEURO: Alert and oriented x3. no neuro deficits. Vital Signs (last 8hr) Date Time Temp Pulse Resp B/P (MAP) Pulse Ox O2 Delivery O2 Flow Rate FiO2 03/07/24 20:10 97.3 56 18 161/70 100 Room Air 03/07/24 16:16 98.4 55 18 154/37 95 Room Air* 0 21 03/07/24 14:27 98.4 56 18 150/69 97 Room Air* 0 21 LABS: Hematology Labs: Test 03/07/24 10:37 Range/Units White Blood Count 6.4 4.8-10.8 K/uL Red Blood Count 3.97 L 4.00-5.50 MIL/uL Hemoglobin 12.5 12.0-16.0 g/dL Hematocrit 38.0 36-48 % Mean Corpuscular Volume 95.7 79-99 fL Mean Corpuscular Hemoglobin 31.5 27.0-33.0 pg Mean Corpuscular Hemoglobin Concent 32.9 32.0-36.0 g/dL Red Cell Distribution Width 12.6 11.0-15.5 % Platelet Count 216 130-400 K/uL Mean Platelet Volume 9.5 7.5-10.5 fL Immature Granulocyte % (Auto) 0.3 0-1 % Neutrophils (%) (Auto) 63.8 40.0-77.0 % Lymphocytes (%) (Auto) 23.2 21.0-51.0 % Monocytes (%) (Auto) 9.1 3.0-13.0 % Eosinophils (%) (Auto) 2.8 0.0-8.0 % Basophils (%) (Auto) 0.8 0.0-5.0 % Neutrophils # (Auto) 4.1 1.8-7.7 K/uL Lymphocytes # (Auto) 1.5 1.0-4.8 K/uL Monocytes # (Auto) 0.6 0.1-1.0 K/uL Eosinophils # (Auto) 0.18 0.00-0.70 K/uL Basophils # (Auto) 0.05 0.00-0.20 K/uL Absolute Immature Granulocyte (auto 0.02 0-1 K/uL Nucleated Red Blood Cells 0.0 0.0-0.19 % Chemistry Labs: Test 03/07/24 10:37 Range/Units Sodium Level 143 136-145 mmol/L Potassium Level 4.3 3.5-5.1 mmol/L Chloride Level 106 101-111 mmol/L Carbon Dioxide Level 29 21-32 mmol/L Blood Urea Nitrogen 22 H 7-18 mg/dL Creatinine 1.0 0.5-1.0 mg/dL Glomerular Filtration Rate Calc 54 >90 mL/min Random Glucose 87 70-105 mg/dL Total Calcium 8.9 8.5-10.1 mg/dL Lipase 13 L 16-77 U/L DIAGNOSTICS / RADIOLOGY RESULTS: [ ] PLAN Admit the patient to medical-surgical floor. ED consulted Dr. Lyons, general surgeon. Keep NPO. NG-tube was placed in ED. P.r.n. medications for: Nausea, vomiting, pain management, fever, and hyper tension Glucometer checks a.c. and HS with insulin regular sliding scale per protocol. Monitor renal and liver function. Monitor electrolytes and treat accordingly. DVT and GI prophylaxis. A.m. labs. NEURO: Minimize central acting medications as possible. Maintain fall precautions, adequate lighting during the day PULMONARY: Supplemental 02 as needed. Maintain aspiration precautions at all times CARDIOVASCULAR: Follow hemodynamics. Vital signs per facility protocol GI & NUTRITION: Continue with nutritional support. Continue stool softeners and laxatives as needed. KIDNEYS & ELECTROLYTES: Strict monitoring of intake, output and overall fluid balance. Avoid nephrotoxic medications to the extent possible. Medications to be dosed according to renal function. Monitor electrolytes and replace as needed ENDOCRINE: Maintain blood glucose between 100-180 at all times. Hypoglycemia protocol in place INFECTIOUS DISEASE: Trend temperature, WBC and procalcitonin level Follow cultures, deescalate antibiotics as soon as possible. Panculture if new onset fever ONCOLOGY/HEMATOLOGY/COAGULATION: Monitor for s/s of bleeding Monitor hemoglobin, coagulation studies as needed SKIN: Pressure ulcer prevention per facility protocol Specialty mattress ORTHO/REHAB: Continue PT/OT Prophylaxis: Continue GI and DVT prophylaxis Code Status: Full Resuscitation Disposition: LEXY SERRANO [employer] Mar 07, 2024 21:40
[2024-03-07] MEDS: FAMOTIDINE 20MG VIAL IV SCH (21:48)
[2024-03-08] VITALS (26 sets, daily range): BP systolic 120–160; BP diastolic 53–77; PULSE 58–83; RESP 14–21; TEMP 97.3–98.6; O2SAT 93–99
--- NOTE | 2024-03-08 07:06 | NUR ---
Pt. taken to O.R. via stretcher @ this time; AAOX3.
[2024-03-08] MEDS ORDERED: ceFAZolin SODIUM 1 GM VIAL ONE (07:17)
--- NOTE | 2024-03-08 07:17 | CONS ---
CONSULTATION NOTE Date of Service: Mar 08, 2024 Reason for Consultation: [ Incarcerated ventral hernia causing bowel obstruction ] Requesting Physician: [ Hospitalist ] HISTORY OF PRESENT ILLNESS: [ Patient with a history of gastric band and then gastric band removal presented to the hospital with 24-48 hours worth of abdominal pain and nausea and emesis. Pain got significantly worse patient came in the emergency room where a CT scan was obtained. I personally reviewed the CT scan. CT scan shows a ventral hernia with a portion of the stomach actually the antrum of the stomach within the hernia causing obstruction. Prior to onset of symptoms patient was tolerating a regular diet, having regular bowel function. Patient denies any melena, hematochezia, hematuria.] REVIEW OF SYSTEMS CONSTITUTIONAL: Denies fever, chills, or fatigue. HEAD/FACE: No signs of trauma. EENT: Denies eye pain, blurred vision, double vision, or light sensitivity. RESPIRATORY: Denies shortness of breath, cough, wheezing CARDIOVASCULAR: Denies chest pain, palpitation, syncope GASTROINTESTINAL/ABDOMINAL: Some abdominal discomfort GENITOURINARY: Denies dysuria or hematuria. MUSCULOSKELETAL: Denies joint pain, tenderness, or trauma. INTEGUMENTARY: Denies rash or itchiness NEUROLOGICAL/PSYCH: Denies anxiety, depression, heat or cold intolerance. PAST MEDICAL HISTORY: [ Diabetes-Type II, High Cholesterol, Hypertension, DVT ] PAST SURGICAL HISTORY: [Laparoscopic gastric restrictive band and laparoscopic band removal ] PAST SOCIAL HISTORY: [Patient denies any illicit drug use ] FAMILY HISTORY: [ Noncontributory ] Coded Allergies: No Known Allergies (Unverified Allergy, Unknown, 01/16/19) PHYSICAL EXAM PHYSICAL EXAM EYES: Sclera white HENT: Oral nasal mucosa pink and moist NECK: Supple, . LUNGS: Unlabored CARDIOVASCULAR: Regular rate and rhythm ABDOMEN: Slightly tender over hernia. No erythema or induration noted. CENTRAL NERVOUS SYSTEM: Awake, alert, oriented x3 SKIN: No rashes, no swelling. LYMPHATICS: No peripheral lymphadenopathy MUSCULOSKELETAL: Motor and sensory function grossly intact EXTREMITIES: No cyanosis or clubbing BACK: No deformity, no pressure ulcer. GENITOURINARY: No dysuria or hematuria Vital Sign (Last 24 Hours) 03/07/24 03/08/24 20:05 00:00 Temp 98.6 Pulse 58 Resp 19 B/P (MAP) 144/72 Pulse Ox 96 O2 Delivery Room Air O2 Flow Rate 0 FiO2 21 Intake & Output (last 24hrs) 03/07/24 03/07/24 03/08/24 15:00 23:00 07:00 Intake Total 950.0 ml Output Total 300 ml 350 ml Balance -300 ml 600.0 ml LABS: Laboratory: Test 03/08/24 05:25 03/07/24 10:43 03/07/24 10:37 Range/Units Whole Blood Glucose 86 70-110 MG/DL Urine Color LIGHT-YELLOW YELLOW Urine Appearance CLEAR CLEAR Urine pH 6.5 5.0-8.0 Urine Specific Ovalo 1.021 1.001-1.031 Urine Protein NEGATIVE NEGATIVE mg/dL Urine Glucose (UA) NEGATIVE NEGATIVE mg/dL Urine Ketones NEGATIVE NEGATIVE mg/dL Urine Occult Blood NEGATIVE NEGATIVE Urine Nitrate NEGATIVE NEGATIVE Urine Bilirubin NEGATIVE NEGATIVE mg/dL Urine Urobilinogen 0.2 0.2-1.0 mg/dL Urine Leukocyte Esterase NEGATIVE NEGATIVE Carlene/uL White Blood Count 6.4 4.8-10.8 K/uL Red Blood Count 3.97 L 4.00-5.50 MIL/uL Hemoglobin 12.5 12.0-16.0 g/dL Hematocrit 38.0 36-48 % Mean Corpuscular Volume 95.7 79-99 fL Mean Corpuscular Hemoglobin 31.5 27.0-33.0 pg Mean Corpuscular Hemoglobin Concent 32.9 32.0-36.0 g/dL Red Cell Distribution Width 12.6 11.0-15.5 % Platelet Count 216 130-400 K/uL Mean Platelet Volume 9.5 7.5-10.5 fL Immature Granulocyte % (Auto) 0.3 0-1 % Neutrophils (%) (Auto) 63.8 40.0-77.0 % Lymphocytes (%) (Auto) 23.2 21.0-51.0 % Monocytes (%) (Auto) 9.1 3.0-13.0 % Eosinophils (%) (Auto) 2.8 0.0-8.0 % Basophils (%) (Auto) 0.8 0.0-5.0 % Neutrophils # (Auto) 4.1 1.8-7.7 K/uL Lymphocytes # (Auto) 1.5 1.0-4.8 K/uL Monocytes # (Auto) 0.6 0.1-1.0 K/uL Eosinophils # (Auto) 0.18 0.00-0.70 K/uL Basophils # (Auto) 0.05 0.00-0.20 K/uL Absolute Immature Granulocyte (auto 0.02 0-1 K/uL Nucleated Red Blood Cells 0.0 0.0-0.19 % Sodium Level 143 136-145 mmol/L Potassium Level 4.3 3.5-5.1 mmol/L Chloride Level 106 101-111 mmol/L Carbon Dioxide Level 29 21-32 mmol/L Blood Urea Nitrogen 22 H 7-18 mg/dL Creatinine 1.0 0.5-1.0 mg/dL Glomerular Filtration Rate Calc 54 >90 mL/min Random Glucose 87 70-105 mg/dL Total Calcium 8.9 8.5-10.1 mg/dL Lipase 13 L 16-77 U/L DIAGNOSTICS / RADIOLOGY: [ ] ASSESSMENT: [ Incarcerated ventral hernia causing patient discomfort ] PLAN: [ Plan laparoscopic ventral hernia repair. Risks associated with the procedure not limited to infection, bleeding, injury to surrounding structures has been explained to patient and she indicates she understands.] CINDY REGALADO MD Mar 08, 2024 07:17
[2024-03-08] MEDS ORDERED: proPOFol 10 MG/ML 20ML VIAL IV ONE (07:23)
[2024-03-08] MEDS ORDERED: MIDAZOLAM HCL 1 MG/ML 2ML VIAL ONE (07:23)
[2024-03-08] MEDS ORDERED: LIDOCAINE PF 100MG/5ML (2%) SYRINGE 5ML ONE (07:23)
[2024-03-08] MEDS ORDERED: SUCCINYLCHOLINE CHLORIDE 20 MG/ML 10 ML VIAL ONE (07:23)
[2024-03-08] MEDS ORDERED: rocuRONium bROMide 10MG/1ML 5ML VL ONE (07:24)
[2024-03-08] MEDS ORDERED: FENTanyl CITRate PF 50 MCG/1 ML 2ML VIAL ONE (07:24)
[2024-03-08] MEDS: ceFAZolin SODIUM 2 GM VIAL IVPB ONE (07:25)
[2024-03-08] MEDS: BUPIvacaine/PF 0.25% 30ML VIAL IJ ONE (07:47)
[2024-03-08] MEDS ORDERED: ePHEDrine SULFate 50 MG/ML AMPULE ONE (07:47)
--- NOTE | 2024-03-08 08:19 | OP ---
Operative Note: DATE OF PROCEDURE: 03/08/24 SURGEON: CINDY REGALADO MD TEST EXAMINER: [Eddy Gonzalez CFA] ANESTHESIA: [General endotracheal anesthesia] ANESTHESIOLOGIST/OPERATOR CAVITY PUMP: [[facility] anesthesia team] PREOPERATIVE DIAGNOSIS: [Incarcerated ventral hernia] POSTOPERATIVE DIAGNOSIS: [Same] SYNOPSIS: [Incarcerated ventral hernia causing patient bowel obstruction Laparoscopic ventral hernia repair Complete closure of hernia defect All sponges and instruments accounted for at the end the case Patient tolerated the procedure well, there no complications ] PROCEDURE: [Laparoscopic ventral hernia repair] ESTIMATED BLOOD LOSS: [Less than 10 cc] INDICATIONS: [Incarcerated ventral hernia causing patient discomfort] DESCRIPTION OF PROCEDURE: [On day of surgery patient was brought operating room. Position in the supine position. Preoperative antibiotics were given. Bilateral SCDs were placed. Patient was intubated. Patient was prepped and draped in the usual fashion. Skin incision made in the left upper quadrant. 5 mm trocars inserted under direct vision. Abdomen was insufflated 15 mmHg. No injury to omentum or bowel was noted. Then a 5 mm port was placed in the left lateral abdomen. The incarcerated omentum was sequently reduced. Then the hernia sac was reduced. The hernia defect itself measured approximately 4 cm in the craniocaudal direction. Then the hernia defect was closed with suture in a [id number] fashion. Complete closure of the hernia defect was achieved. Then to cover the primary hernia repair I placed a piece of Phasix mesh measuring 7 x 10 cm. The mesh was held in place by trans fascial suture and then tacked in place with an absorbable Tacker. Complete coverage of the primary hernia repair was achieved. Then all insufficient gas was removed. Ports removed. Local anesthetic was instilled to the incisions and the incision was closed in subcuticular fashion and appropriately dressed. Patient then was woken up, transferred to, taken to recovery to recover. All sponges and instruments accounted for the end the case. Patient tolerated the procedure well, there is no complications.] CINDY REGALADO MD Mar 08, 2024 08:19
[2024-03-08] MEDS ORDERED: NEOSTIGMINE METHYLSULFATE 1MG/ML IV ONE (08:23)
[2024-03-08] MEDS ORDERED: GLYCOPYRROLATE 0.2 MG/ML 5 ML VIAL ONE (08:23)
[2024-03-08] MEDS: MEPERIDINE-PF 25 MG/ML SYG ONE ×2 (08:46→08:59)
[2024-03-08] MEDS: traMADol HCL 50 MG TABLET PO PRN (10:09)
[2024-03-08 11:12] LABS: HEMATOCRIT 35.7 % (36-48); MEAN CORPUSCULAR HEMOGLOBIN 31.2 pg (27.0-33.0); MEAN CORPUSCULAR HGB CONC 31.9 g/dL (32.0-36.0); MEAN CORPUSCULAR VOLUME 97.8 fL (79-99); RED BLOOD CELL COUNT(AUTO) 3.65 MIL/uL (4.00-5.50); RED CELL DISTRIBUTION WIDTH 12.6 % (11.0-15.5); WHITE BLOOD COUNT (AUTO) 8.8 K/uL (4.8-10.8)
--- NOTE | 2024-03-08 11:18 | PN ---
[facility] PROGRESS NOTE Date Patient Seen: Mar 08, 2024 Time of Visit: 11:18 Supervising Physician: Kwame Smith MD Primary Care Physician: Dr. La Nena Olsen Outpatient Specialists: Inpatient Consults: Dr. Shaka Epstein, surgeon PROBLEM LIST: Incarcerated ventral hernia causing patient bowel obstruction S/P Laparoscopic ventral hernia repair w/ Complete closure of hernia defect on 03/08/[address] Epstein Acute abdominal pain POA Acute or chronic kidney disease, GFR 54 Diabetes mellitus Hypertension Hypercholesteremia Octogenarian History of DVT Elevated TSH POA History: Laparoscopic gastric restrictive band and laparoscopic band removal INTERVAL HISTORY: Patient is awake alert and oriented x3 seen in room 416 she is status post ventral hernia repair with full closure by Dr Epstein. Recovering well hemodynamically stable in no apparent distress saturating 96% with 2 L via nasal cannula. H&H is 11.4/35.7 270430 platelets. Chemistry unremarkable albumin 3.1 protein 5.5 TSH 8.31, may be in elevated in the presence of acute illness, I will order free T3 and T4 for now. REVIEW OF SYSTEMS: 12 point ROS reviewed with patient. Pertinent positives mentioned above. Otherwise negative. PHYSICAL EXAM: GENERAL: alert, weak, awake oriented x 3 HEENT: EOMI, Sclera non icteric, moist mucosa NECK: Supple, no JVD, trachea midline LUNGS: Clear breath sounds bilaterally. No wheezes HEART: Regular rate and rhythm. Normal S1 and S2, without murmurs ABD: Left upper abdomen: Firm. Remaining abdomen: soft, nontender. Bowel soun ds present EXT: No clubbing cyanosis or edema NEURO: Alert and oriented x3. no neuro deficits. Vital Signs (last 8hr) Date Time Temp Pulse Resp B/P (MAP) Pulse Ox O2 Delivery O2 Flow Rate FiO2 03/08/24 09:30 93 Nasal Cannula* 3 32 03/08/24 09:30 97.3 66 15 125/61 95 Nasal Cannula 3.0 28 03/08/24 09:25 97.3 69 15 128/57 95 Nasal Cannula 3.0 28 03/08/24 09:20 97.3 69 15 120/53 96 Nasal Cannula 3.0 28 03/08/24 09:15 97.3 73 14 127/56 96 Nasal Cannula 3.0 28 03/08/24 09:10 97.3 74 15 129/59 96 Nasal Cannula 3.0 28 12/14/24 09:05 97.3 69 16 135/60 96 Nasal Cannula 3.0 03/08/24 09:00 97.3 75 18 137/64 96 Nasal Cannula 3.0 03/08/24 08:55 97.3 80 20 148/73 96 Nasal Cannula 3.0 03/08/24 08:50 97.3 78 20 145/68 96 Nasal Cannula 3.0 03/08/24 08:45 97.3 76 20 156/74 98 Nonrebreathing Mask 10.0 100 03/08/24 08:40 97.3 82 21 160/77 98 Nonrebreathing Mask 10.0 03/08/24 08:35 97.3 79 18 149/74 98 Nonrebreathing Mask 10.0 03/08/24 08:30 97.3 71 14 137/66 98 Nonrebreathing Mask 10.0 100 03/08/24 04:00 97.3 66 19 153/67 92 Room Air LABS: Hematology Labs: Test 03/08/24 11:00 03/07/24 10:37 Range/Units White Blood Count 8.8 4.8-10.8 K/uL Red Blood Count 3.65 L 4.00-5.50 MIL/uL Hemoglobin 11.4 L 12.0-16.0 g/dL Hematocrit 35.7 L 36-48 % Mean Corpuscular Volume 97.8 79-99 fL Mean Corpuscular Hemoglobin 31.2 27.0-33.0 pg Mean Corpuscular Hemoglobin Concent 31.9 L 32.0-36.0 g/dL Red Cell Distribution Width 12.6 11.0-15.5 % Platelet Count 179 130-400 K/uL Mean Platelet Volume 9.5 7.5-10.5 fL Nucleated Red Blood Cells 0.0 0.0-0.19 % Immature Granulocyte % (Auto) 0.3 0-1 % Neutrophils (%) (Auto) 63.8 40.0-77.0 % Lymphocytes (%) (Auto) 23.2 21.0-51.0 % Monocytes (%) (Auto) 9.1 3.0-13.0 % Eosinophils (%) (Auto) 2.8 0.0-8.0 % Basophils (%) (Auto) 0.8 0.0-5.0 % Neutrophils # (Auto) 4.1 1.8-7.7 K/uL Lymphocytes # (Auto) 1.5 1.0-4.8 K/uL Monocytes # (Auto) 0.6 0.1-1.0 K/uL Eosinophils # (Auto) 0.18 0.00-0.70 K/uL Basophils # (Auto) 0.05 0.00-0.20 K/uL Absolute Immature Granulocyte (auto 0.02 0-1 K/uL Chemistry Labs: Test 03/08/24 05:25 03/07/24 10:37 Range/Units Whole Blood Glucose 86 70-110 MG/DL Sodium Level 143 136-145 mmol/L Potassium Level 4.3 3.5-5.1 mmol/L Chloride Level 106 101-111 mmol/L Carbon Dioxide Level 29 21-32 mmol/L Blood Urea Nitrogen 22 H 7-18 mg/dL Creatinine 1.0 0.5-1.0 mg/dL Glomerular Filtration Rate Calc 54 >90 mL/min Random Glucose 87 70-105 mg/dL Total Calcium 8.9 8.5-10.1 mg/dL Lipase 13 L 16-77 U/L DIAGNOSTICS / RADIOLOGY RESULTS: [ ] PLAN Follow General surgery recommendations Noraquis was on hold due to surgical procedure kindly follow up on restart Diet per surgery P.r.n. medications for: Nausea, vomiting, pain management, fever, and hypertension Glucometer checks a.c. and HS with insulin regular sliding scale per protocol. Monitor renal and liver function. Monitor electrolytes and treat accordingly. DVT and GI prophylaxis. A.m. labs. follow up T3 and T4. NEURO: Minimize central acting medications as possible. Maintain fall precautions, adequate lighting during the day PULMONARY: Supplemental 02 as needed. Maintain aspiration precautions at all times CARDIOVASCULAR: Follow hemodynamics. Vital signs per facility protocol GI & NUTRITION: Continue with nutritional support. Continue stool softeners and laxatives as needed. KIDNEYS & ELECTROLYTES: Strict monitoring of intake, output and overall fluid balance. Avoid nephrotoxic medications to the extent possible. Medications to be dosed according to renal function. Monitor electrolytes and replace as needed ENDOCRINE: Maintain blood glucose between 100-180 at all times. Hypoglycemia protocol in place INFECTIOUS DISEASE: Trend temperature, WBC and procalcitonin level Follow cultures, deescalate antibiotics as soon as possible. Panculture if new onset fever ONCOLOGY/HEMATOLOGY/COAGULATION: Monitor for s/s of bleeding Monitor hemoglobin, coagulation studies as needed SKIN: Pressure ulcer prevention per facility protocol Specialty mattress ORTHO/REHAB: Continue PT/OT Prophylaxis: Continue GI and DVT prophylaxis Code Status: Full Resuscitation Disposition: [facility]INE[facility] Mar 08, 2024 11:18
[2024-03-08 11:36] LABS: ALBUMIN 3.1 g/dL (3.5-5.0); BILIRUBIN,TOTAL 0.3 mg/dL (0.2-1.0); CREATININE 0.9 mg/dL (0.5-1.0); MAGNESIUM 1.8 mg/dL (1.80-2.40); PHOSPHORUS 3.8 mg/dL (2.5-4.9); POTASSIUM 4.4 mmol/L (3.5-5.1); THYROID STIMULATING HORMONE 8.31 uIU/mL (0.36-3.74); TOTAL PROTEIN, SERUM 5.5 g/dL (6.0-8.3)
[2024-03-08 11:44] LABS: HEMOGLOBIN A1C 5.3 % (4.0-6.0)
[2024-03-08] MEDS: hydroMORPHone 0.5 MG SYG (0.5MG/0.5ML) IVP PRN (12:51)
[2024-03-08] MEDS: GABApentin 100 MG CAPSULE PO SCH (14:36)
--- NOTE | 2024-03-08 15:04 | NUR ---
INITIAL ASSESSMENT Patient lives alone. She has no home services. DME: cane, rollator, wheelchair, BPM. Patient is able to complete ADLs independently and drives. PCP is Dr. La Nena Olsen. Pharmacy is [facility] in [place]. Patient has no issues with having stable care home to live in or transportation. She has lived in her home for some time. No concerns voiced regarding not having enough food in the home. No safety concerns voiced regarding returning home. DCP is home. Addendum: 03/08/24 at 1507 by KARINA VELIZ Amended: Links added.
[2024-03-08] MEDS: doCUSate SODIUM 100 MG CAP PO SCH (20:28)
[2024-03-08] MEDS: INSULIN humuLIN R 100 UNIT/ML 3ML SQ SCH ×2 (20:29)
[2024-03-09] VITALS (9 sets, daily range): BP systolic 129–171; BP diastolic 55–84; PULSE 17–82; RESP 18–22; TEMP 97.7–98.8; O2SAT 90–99
[2024-03-09] MEDS: ondanSETRON 4MG INJ IVP PRN (04:42)
[2024-03-09 06:46] LABS: BASOPHILS # (AUTO) 0.03 K/uL (0.00-0.20); BASOPHILS % (AUTO) 0.3 % (0.0-5.0); EOSINOPHILS # (AUTO) 0.08 K/uL (0.00-0.70); EOSINOPHILS % (AUTO) 0.7 % (0.0-8.0); HEMATOCRIT 35.3 % (36-48); IMMATURE GRANULOCYTE ABSOLUTE 0.07 K/uL (0-1); LYMPHOCYTES # (AUTO) 0.7 K/uL (1.0-4.8); LYMPHOCYTES % (AUTO) 5.6 % (21.0-51.0); MEAN CORPUSCULAR HEMOGLOBIN 30.8 pg (27.0-33.0); MEAN CORPUSCULAR VOLUME 96.2 fL (79-99); MONOCYTES # (AUTO) 1.2 K/uL (0.1-1.0); NEUTROPHILS # (AUTO) 9.7 K/uL (1.8-7.7); NEUTROPHILS % (AUTO) 82.8 % (40.0-77.0); PLATELET COUNT (AUTO) 206 K/uL (130-400); RED BLOOD CELL COUNT(AUTO) 3.67 MIL/uL (4.00-5.50); RED CELL DISTRIBUTION WIDTH 12.3 % (11.0-15.5); WHITE BLOOD COUNT (AUTO) 11.8 K/uL (4.8-10.8)
[2024-03-09 07:08] LABS: BILIRUBIN,TOTAL 0.7 mg/dL (0.2-1.0); CREATININE 0.7 mg/dL (0.5-1.0); POTASSIUM 3.6 mmol/L (3.5-5.1); TOTAL PROTEIN, SERUM 5.3 g/dL (6.0-8.3)
--- NOTE | 2024-03-09 10:33 | PN ---
[facility] PROGRESS NOTE Date Patient Seen: Mar 09, 2024 Time of Visit: 10:33 Supervising Physician: Dr. Smith Primary Care Physician: Dr. La Nena Olsen Outpatient Specialists: Inpatient Consults: Dr. Shaka Epstein, surgeon PROBLEM LIST: Incarcerated ventral hernia causing patient bowel obstruction S/P Laparoscopic ventral hernia repair w/ Complete closure of hernia defect on 03/08/[address] Epstein Acute kidney injury on admission, resolved Diabetes mellitus , type II Hypertension Hyperlipidemia Octogenarian History of DVT Elevated TSH History: Laparoscopic gastric restrictive band and laparoscopic band removal INTERVAL HISTORY: Pt remains weak at this point. She is not yet passing gas, no BM. Continues on IVF and CLD. She has expected post operative abdominal soreness. Denies any headache or dizziness. Denies any chest pain or palpitations. Denies any cough or shortness of breath at rest. Denies any dysuria or hematuria REVIEW OF SYSTEMS: 12 point ROS reviewed with patient. Pertinent positives mentioned above. Otherwise negative. PHYSICAL EXAM: GENERAL: alert, weak, awake oriented x 3 HEENT: EOMI, Sclera non icteric, moist mucosa NECK: Supple, no JVD, trachea midline LUNGS: Clear breath sounds bilaterally. No wheezes HEART: Regular rate and rhythm. Normal S1 and S2, without murmurs ABD: Abdomen soft, mild diffuse tenderness, BS hypoactive EXT: No clubbing cyanosis or edema NEURO: Alert and oriented x3. no neuro deficits. Vital Signs (last 8hr) Date Time Temp Pulse Resp B/P (MAP) Pulse Ox O2 Delivery O2 Flow Rate FiO2 03/09/24 08:00 98.8 80 18 143/55 95 Room Air 03/09/24 03:46 98.4 17 22 129/61 99 Nasal Cannula 3.0 LABS: Hematology Labs: Test 03/09/24 05:57 Range/Units White Blood Count 11.8 #H 4.8-10.8 K/uL Red Blood Count 3.67 L 4.00-5.50 MIL/uL Hemoglobin 11.3 L 12.0-16.0 g/dL Hematocrit 35.3 L 36-48 % Mean Corpuscular Volume 96.2 79-99 fL Mean Corpuscular Hemoglobin 30.8 27.0-33.0 pg Mean Corpuscular Hemoglobin Concent 32.0 32.0-36.0 g/dL Red Cell Distribution Width 12.3 11.0-15.5 % Platelet Count 206 130-400 K/uL Mean Platelet Volume 10.0 7.5-10.5 fL Immature Granulocyte % (Auto) 0.6 0-1 % Neutrophils (%) (Auto) 82.8 H 40.0-77.0 % Lymphocytes (%) (Auto) 5.6 L 21.0-51.0 % Monocytes (%) (Auto) 10.0 3.0-13.0 % Eosinophils (%) (Auto) 0.7 0.0-8.0 % Basophils (%) (Auto) 0.3 0.0-5.0 % Neutrophils # (Auto) 9.7 H 1.8-7.7 K/uL Lymphocytes # (Auto) 0.7 L 1.0-4.8 K/uL Monocytes # (Auto) 1.2 H 0.1-1.0 K/uL Eosinophils # (Auto) 0.08 0.00-0.70 K/uL Basophils # (Auto) 0.03 0.00-0.20 K/uL Absolute Immature Granulocyte (auto 0.07 0-1 K/uL Nucleated Red Blood Cells 0.0 0.0-0.19 % White Cell Morphology Comment See comments Chemistry Labs: Test 03/09/24 05:57 03/09/24 05:41 03/08/24 11:00 03/07/24 10:37 Range/Units Sodium Level 137 136-145 mmol/L Potassium Level 3.6 3.5-5.1 mmol/L Chloride Level 104 101-111 mmol/L Carbon Dioxide Level 27 21-32 mmol/L Blood Urea Nitrogen 11 7-18 mg/dL Creatinine 0.7 0.5-1.0 mg/dL Glomerular Filtration Rate Calc 83 >90 mL/min Random Glucose 99 70-105 mg/dL Total Calcium 8.3 L 8.5-10.1 mg/dL Total Bilirubin 0.7 # 0.2-1.0 mg/dL Aspartate Amino Transf (AST/SGOT) 23 10-37 U/L Alanine Aminotransferase (ALT/SGPT) 17 # 12-78 U/L Alkaline Phosphatase 64 50-136 U/L Total Protein 5.3 L 6.0-8.3 g/dL Albumin 3.0 L 3.5-5.0 g/dL Free Thyroxine (T4) Direct 1.35 0.76-1.46 ng/dL Free Triiodothyronine (T3) pg/mL 2.07 L 2.18-3.98 pg/mL Whole Blood Glucose 102 70-110 MG/DL Hemoglobin A1c 5.3 4.0-6.0 % Estimated Average Glucose (eAG) 105 70-126 mg/dL Phosphorus Level 3.8 2.5-4.9 mg/dL Magnesium Level 1.80 1.80-2.40 mg/dL Thyroid Stimulating Hormone (TSH) 8.31 #H 0.36-3.74 uIU/mL Lipase 13 L 16-77 U/L DIAGNOSTICS / RADIOLOGY RESULTS: Reviewed with supervising MD Plan: Neuro: Minimize central acting medications as possible. Maintain fall precautions, adequate lighting during the day Cardiovascular: Follow hemodynamics. Vital signs per facility protocol Pulmonary: Supplemental 02 as needed. Maintain aspiration precautions at all times GI and nutrition: Continue with nutritional support. Continue stool softeners and laxatives as needed. Kidney and electrolytes: Strict monitoring of intake, output and overall fluid balance. Avoid nephrotoxic medications to the extent possible. Medications to be dosed according to renal function. Monitor electrolytes and replace as needed Endocrine: Maintain blood glucose between 100-180 at all times. Hypoglycemia protocol in place Infectious disease: Trend temperature, WBC and procalcitonin level Follow cultures, deescalate antibiotics as soon as possible. Panculture if new onset fever Oncology/Hematology/Coagulation: Monitor for s/s of bleeding Monitor hemoglobin, coagulation studies as needed Skin: Pressure ulcer prevention per facility protocol Specialty mattress Ortho/Rehab: Continue PT/OT Prophylaxis:. Continue GI and DVT prophylaxis as appropriate Disposition:. IRU referral initiated Total patient care time excluding any procedures: 40 min LORENZO MCKEON NP Mar 09, 2024 10:33
--- NOTE | 2024-03-09 11:45 | NUR ---
Patient seen and evaluated. No chair alarm pad available on the floor. Nurse aware. Patient up in chair instructed to not get out of bed. Patient voiced understanding.
[2024-03-09] MEDS: LACTULOSE 20 GM/30 ML UDCUP PO PRN (14:40)
[2024-03-09] MEDS: atorVAStatin 10 MG TABLET PO SCH (20:10)
[2024-03-09] MEDS: LoSARTan 100 MG TABLET PO SCH (20:10)
[2024-03-09] MEDS: DIPHENHYDRAMINE PO SCH (20:15)
[2024-03-09] MEDS: ACETAMINOPHEN PO SCH (20:15)
[2024-03-10 04:00] VITALS: BP 150/70; PULSE 80; RESP 20; TEMP 98.4
[2024-03-10 05:47] LABS: HEMATOCRIT 34.9 % (36-48); MEAN CORPUSCULAR HEMOGLOBIN 31.4 pg (27.0-33.0); MEAN CORPUSCULAR HGB CONC 33.2 g/dL (32.0-36.0); MEAN CORPUSCULAR VOLUME 94.3 fL (79-99); RED BLOOD CELL COUNT(AUTO) 3.7 MIL/uL (4.00-5.50)
[2024-03-10 06:06] LABS: CREATININE 0.7 mg/dL (0.5-1.0); POTASSIUM 3.6 mmol/L (3.5-5.1)
[2024-03-10 08:00] VITALS: O2SAT 96
[2024-03-10] MEDS: PoTASSium chloRIDE 20MEQ ER 20 MEQ ERTAB PO PRN (08:19)
[2024-03-10 08:40] VITALS: BP 166/79; PULSE 81; RESP 17; TEMP 98
[2024-03-10 12:05] VITALS: BP 152/62; PULSE 68; RESP 17; TEMP 98.3
--- NOTE | 2024-03-10 16:30 | PN ---
[facility] PROGRESS NOTE Date Patient Seen: Mar 10, 2024 Time of Visit: 16:27 Supervising Physician: CATHERINE SAMAYOA MD Primary Care Physician: Dr. La Nena Olsen Outpatient Specialists: Inpatient Consults: Dr. Shaka Epstein, surgeon PROBLEM LIST: Incarcerated ventral hernia causing patient bowel obstruction S/P Laparoscopic ventral hernia repair w/ Complete closure of hernia defect on 03/08/[address] Epstein Acute kidney injury on admission, resolved Diabetes mellitus , type II Hypertension Hyperlipidemia Octogenarian History of DVT Elevated TSH History: Laparoscopic gastric restrictive band and laparoscopic band removal INTERVAL HISTORY: Pt remains weak at this point, + nausea, + emesis , Ambulating today , no BM however is passing gas. Continues on IVF and CLD. Expresses she is unable to tolerate broth . Lab work reveals leukocytosis of 12.0, potassium of 3.6, prior magnesium of 1.8. continues on NS at 100 cc/hour, awaiting further recommendations from General surgery at this time. REVIEW OF SYSTEMS: 12 point ROS reviewed with patient. Pertinent positives mentioned above. Otherwise negative. PHYSICAL EXAM: GENERAL: alert, weak, awake oriented x 3 HEENT: EOMI, Sclera non icteric, moist mucosa NECK: Supple, no JVD, trachea midline LUNGS: Clear breath sounds bilaterally. No wheezes HEART: Regular rate and rhythm. Normal S1 and S2, without murmurs ABD: Abdomen soft, mild diffuse tenderness, BS hypoactive EXT: No clubbing cyanosis or edema NEURO: Alert and oriented x3. no neuro deficits. Vital Signs (last 8hr) Date Time Temp Pulse Resp B/P (MAP) Pulse Ox O2 Delivery O2 Flow Rate FiO2 03/10/24 12:05 98.2 68 17 152/62 94 Room Air 21 03/10/24 08:40 98.1 81 17 166/79 96 Room Air 21 LABS: Hematology Labs: Test 03/10/24 05:17 03/09/24 05:57 Range/Units White Blood Count 12.0 H 4.8-10.8 K/uL Red Blood Count 3.70 L 4.00-5.50 MIL/uL Hemoglobin 11.6 L 12.0-16.0 g/dL Hematocrit 34.9 L 36-48 % Mean Corpuscular Volume 94.3 79-99 fL Mean Corpuscular Hemoglobin 31.4 27.0-33.0 pg Mean Corpuscular Hemoglobin Concent 33.2 32.0-36.0 g/dL Red Cell Distribution Width 12.0 11.0-15.5 % Platelet Count 201 130-400 K/uL Mean Platelet Volume 9.8 7.5-10.5 fL Nucleated Red Blood Cells 0.0 0.0-0.19 % Immature Granulocyte % (Auto) 0.6 0-1 % Neutrophils (%) (Auto) 82.8 H 40.0-77.0 % Lymphocytes (%) (Auto) 5.6 L 21.0-51.0 % Monocytes (%) (Auto) 10.0 3.0-13.0 % Eosinophils (%) (Auto) 0.7 0.0-8.0 % Basophils (%) (Auto) 0.3 0.0-5.0 % Neutrophils # (Auto) 9.7 H 1.8-7.7 K/uL Lymphocytes # (Auto) 0.7 L 1.0-4.8 K/uL Monocytes # (Auto) 1.2 H 0.1-1.0 K/uL Eosinophils # (Auto) 0.08 0.00-0.70 K/uL Basophils # (Auto) 0.03 0.00-0.20 K/uL Absolute Immature Granulocyte (auto 0.07 0-1 K/uL White Cell Morphology Comment See comments Chemistry Labs: Test 03/10/24 16:19 03/10/24 05:17 03/09/24 05:57 Range/Units Whole Blood Glucose 128 H 70-110 MG/DL Sodium Level 135 L 136-145 mmol/L Potassium Level 3.6 3.5-5.1 mmol/L Chloride Level 102 101-111 mmol/L Carbon Dioxide Level 27 21-32 mmol/L Blood Urea Nitrogen 13 7-18 mg/dL Creatinine 0.7 0.5-1.0 mg/dL Glomerular Filtration Rate Calc 83 >90 mL/min Random Glucose 126 H 70-105 mg/dL Total Calcium 8.6 8.5-10.1 mg/dL Total Bilirubin 0.7 # 0.2-1.0 mg/dL Aspartate Amino Transf (AST/SGOT) 23 10-37 U/L Alanine Aminotransferase (ALT/SGPT) 17 # 12-78 U/L Alkaline Phosphatase 64 50-136 U/L Total Protein 5.3 L 6.0-8.3 g/dL Albumin 3.0 L 3.5-5.0 g/dL Free Thyroxine (T4) Direct 1.35 0.76-1.46 ng/dL Free Triiodothyronine (T3) pg/mL 2.07 L 2.18-3.98 pg/mL DIAGNOSTICS / RADIOLOGY RESULTS: [ ] Plan: Neuro: Minimize central acting medications as possible. Maintain fall precautions, adequate lighting during the day Cardiovascular: Follow hemodynamics. Vital signs per facility protocol Pulmonary: Supplemental 02 as needed. Maintain aspiration precautions at all times GI and nutrition: Continue with nutritional support. CLD , KUb in AM and await general surgery recs Encourage ambulation Continue stool softeners and laxatives as needed. Kidney and electrolytes: Strict monitoring of intake, output and overall fluid balance. Avoid nephrotoxic medications to the extent possible. Medications to be dosed according to renal function. Monitor electrolytes and replace as needed Endocrine: Maintain blood glucose between 100-180 at all times. Hypoglycemia protocol in place Infectious disease: Trend temperature, WBC and procalcitonin level Follow cultures, deescalate antibiotics as soon as possible. Panculture if new onset fever Oncology/Hematology/Coagulation: Monitor for s/s of bleeding Monitor hemoglobin, coagulation studies as needed Skin: Pressure ulcer prevention per facility protocol Specialty mattress Ortho/Rehab: Continue PT/OT Prophylaxis:. Continue GI and DVT prophylaxis as appropriate Disposition:. IRU referral initiated Total patient care time excluding any procedures: 40 min THIEN SEPULVEDA Mar 10, 2024 16:30
[2024-03-10 17:34] VITALS: BP 150/73; PULSE 74; RESP 18; TEMP 98.2
[2024-03-10 20:00] VITALS: O2SAT 93
[2024-03-11] VITALS (7 sets, daily range): BP systolic 142–157; BP diastolic 70–91; PULSE 53–83; RESP 16–20; TEMP 98.1–98.5; O2SAT 94–95
[2024-03-11 05:37] LABS: BASOPHILS # (AUTO) 0.03 K/uL (0.00-0.20); BASOPHILS % (AUTO) 0.2 % (0.0-5.0); EOSINOPHILS % (AUTO) 1.5 % (0.0-8.0); HEMATOCRIT 35.9 % (36-48); IMMATURE GRANULOCYTE ABSOLUTE 0.08 K/uL (0-1); LYMPHOCYTES # (AUTO) 0.9 K/uL (1.0-4.8); LYMPHOCYTES % (AUTO) 6.3 % (21.0-51.0); MEAN CORPUSCULAR HEMOGLOBIN 31.8 pg (27.0-33.0); MEAN CORPUSCULAR HGB CONC 33.1 g/dL (32.0-36.0); MONOCYTES % (AUTO) 14.7 % (3.0-13.0); NEUTROPHILS # (AUTO) 10.4 K/uL (1.8-7.7); NEUTROPHILS % (AUTO) 76.7 % (40.0-77.0); PLATELET COUNT (AUTO) 143 K/uL (130-400); RED BLOOD CELL COUNT(AUTO) 3.74 MIL/uL (4.00-5.50); RED CELL DISTRIBUTION WIDTH 12.3 % (11.0-15.5); WHITE BLOOD COUNT (AUTO) 13.6 K/uL (4.8-10.8)
[2024-03-11 06:02] LABS: CREATININE 0.8 mg/dL (0.5-1.0); POTASSIUM 4.7 mmol/L (3.5-5.1)
[2024-03-11 06:10] LABS: ALBUMIN 2.6 g/dL (3.5-5.0); BILIRUBIN,TOTAL 0.7 mg/dL (0.2-1.0); MAGNESIUM 1.9 mg/dL (1.80-2.40); TOTAL PROTEIN, SERUM 5.4 g/dL (6.0-8.3)
[2024-03-11] MEDS: metOPROLol sucCINATE 25 MG TAB.SR.24H PO SCH (08:17)
--- NOTE | 2024-03-11 14:08 | PN ---
[facility] PROGRESS NOTE Date Patient Seen: Mar 11, 2024 Time of Visit: 14:04 Supervising Physician: Dr Smith Primary Care Physician: Dr. La Nena Olsen Outpatient Specialists: Inpatient Consults: Dr. Shaka Epstein, surgeon PROBLEM LIST: Incarcerated ventral hernia causing patient bowel obstruction S/P Laparoscopic ventral hernia repair w/ Complete closure of hernia defect on 03/08/[address] Epstein Acute kidney injury on admission, resolved Diabetes mellitus , type II Hypertension Hyperlipidemia Octogenarian History of DVT Elevated TSH History: Laparoscopic gastric restrictive band and laparoscopic band removal Plan Summary: Supplemental oxygen as needed Wean off as tolerated Clear liquid diet and advance as tolerated Out of bed to chair and ambulate PT as tolerated Dispo: IRU once accepted INTERVAL HISTORY: Pt remains weak at this point, + nausea, + emesis , Ambulating today , no BM however is passing gas. Continues on IVF and CLD. Expresses she is unable to tolerate broth . Lab work reveals leukocytosis of 12.0, potassium of 3.6, prior magnesium of 1.8. continues on NS at 100 cc/hour, awaiting further recommendations from General surgery at this time. 03/11 - patient is seen and evaluated currently working with physical therapy. Patient is ambulating around the verma. Patient does appear weak and deconditioned. Patient does report passing gas however has not had a bowel movement. Patient continues on clear liquid diet at this time. No acute changes reported overnight. Continue to monitor closely. Vital signs are stable. Labs are within normal limits. Continue current treatment plan for now. REVIEW OF SYSTEMS: 12 point ROS reviewed with patient. Pertinent positives mentioned above. Otherwise negative. PHYSICAL EXAM: GENERAL: alert, weak, awake oriented x 3 HEENT: EOMI, Sclera non icteric, moist mucosa NECK: Supple, no JVD, trachea midline LUNGS: Clear breath sounds bilaterally. No wheezes HEART: Regular rate and rhythm. Normal S1 and S2, without murmurs ABD: Abdomen soft, mild diffuse tenderness, BS hypoactive EXT: No clubbing cyanosis or edema NEURO: Alert and oriented x3. no neuro deficits. Vital Signs (last 8hr) Date Time Temp Pulse Resp B/P (MAP) Pulse Ox O2 Delivery O2 Flow Rate FiO2 03/11/24 12:00 98.4 63 16 150/75 95 03/11/24 08:00 94 Room Air* 0 21 03/11/24 07:15 98.1 83 20 157/91 94 Room Air LABS: Hematology Labs: Test 03/11/24 05:22 Range/Units White Blood Count 13.6 H 4.8-10.8 K/uL Red Blood Count 3.74 L 4.00-5.50 MIL/uL Hemoglobin 11.9 L 12.0-16.0 g/dL Hematocrit 35.9 L 36-48 % Mean Corpuscular Volume 96.0 79-99 fL Mean Corpuscular Hemoglobin 31.8 27.0-33.0 pg Mean Corpuscular Hemoglobin Concent 33.1 32.0-36.0 g/dL Red Cell Distribution Width 12.3 11.0-15.5 % Platelet Count 143 # 130-400 K/uL Mean Platelet Volume 11.0 H 7.5-10.5 fL Immature Granulocyte % (Auto) 0.6 0-1 % Neutrophils (%) (Auto) 76.7 40.0-77.0 % Lymphocytes (%) (Auto) 6.3 L 21.0-51.0 % Monocytes (%) (Auto) 14.7 H 3.0-13.0 % Eosinophils (%) (Auto) 1.5 0.0-8.0 % Basophils (%) (Auto) 0.2 0.0-5.0 % Neutrophils # (Auto) 10.4 H 1.8-7.7 K/uL Lymphocytes # (Auto) 0.9 L 1.0-4.8 K/uL Monocytes # (Auto) 2.0 H 0.1-1.0 K/uL Eosinophils # (Auto) 0.20 0.00-0.70 K/uL Basophils # (Auto) 0.03 0.00-0.20 K/uL Absolute Immature Granulocyte (auto 0.08 0-1 K/uL Nucleated Red Blood Cells 0.0 0.0-0.19 % Chemistry Labs: Test 03/11/24 11:04 03/11/24 05:22 Range/Units Whole Blood Glucose 132 H 70-110 MG/DL Sodium Level 133 L 136-145 mmol/L Potassium Level 4.7 3.5-5.1 mmol/L Chloride Level 101 101-111 mmol/L Carbon Dioxide Level 25 21-32 mmol/L Blood Urea Nitrogen 14 7-18 mg/dL Creatinine 0.8 0.5-1.0 mg/dL Glomerular Filtration Rate Calc 71 >90 mL/min Random Glucose 107 H 70-105 mg/dL Total Calcium 8.6 8.5-10.1 mg/dL Magnesium Level 1.90 1.80-2.40 mg/dL Total Bilirubin 0.7 0.2-1.0 mg/dL Aspartate Amino Transf (AST/SGOT) 27 10-37 U/L Alanine Aminotransferase (ALT/SGPT) 16 12-78 U/L Alkaline Phosphatase 67 50-136 U/L Total Protein 5.4 L 6.0-8.3 g/dL Albumin 2.6 L 3.5-5.0 g/dL DIAGNOSTICS / RADIOLOGY RESULTS: [ ] Plan: Neuro: Minimize central acting medications as possible. Maintain fall precautions, adequate lighting during the day Cardiovascular: Follow hemodynamics. Vital signs per facility protocol Pulmonary: Supplemental 02 as needed. Maintain aspiration precautions at all times GI and nutrition: Continue with nutritional support. CLD , KUb in AM and await general surgery recs Encourage ambulation Continue stool softeners and laxatives as needed. Kidney and electrolytes: Strict monitoring of intake, output and overall fluid balance. Avoid nephrotoxic medications to the extent possible. Medications to be dosed according to renal function. Monitor electrolytes and replace as needed Endocrine: Maintain blood glucose between 100-180 at all times. Hypoglycemia protocol in place Infectious disease: Trend temperature, WBC and procalcitonin level Follow cultures, deescalate antibiotics as soon as possible. Panculture if new onset fever Oncology/Hematology/Coagulation: Monitor for s/s of bleeding Monitor hemoglobin, coagulation studies as needed Skin: Pressure ulcer prevention per facility protocol Specialty mattress Ortho/Rehab: Continue PT/OT Prophylaxis:. Continue GI and DVT prophylaxis as appropriate Disposition:. IRU referral initiated Total patient care time excluding any procedures: 40 min ATTESTATION BY PHYSICIAN I reviewed the documentation, medical decision making, and treatment plan as noted by the mid-level provider above. I agree with the findings and plan of care. Kwame Smith MD, ECTOR N NP Mar 11, 2024 14:08
[2024-03-12 04:00] VITALS: BP 158/64; PULSE 78; RESP 20; TEMP 98.4
[2024-03-12 04:27] LABS: HEMATOCRIT 33.6 % (36-48); MEAN CORPUSCULAR HEMOGLOBIN 31.1 pg (27.0-33.0); MEAN CORPUSCULAR HGB CONC 33.9 g/dL (32.0-36.0); MEAN CORPUSCULAR VOLUME 91.8 fL (79-99); RED BLOOD CELL COUNT(AUTO) 3.66 MIL/uL (4.00-5.50); WHITE BLOOD COUNT (AUTO) 13.7 K/uL (4.8-10.8)
[2024-03-12 04:40] LABS: CREATININE 0.9 mg/dL (0.5-1.0); POTASSIUM 4.6 mmol/L (3.5-5.1)
[2024-03-12 08:00] VITALS: BP 150/71; PULSE 74; RESP 18; TEMP 98.8; O2SAT 95
--- NOTE | 2024-03-12 09:32 | HMCIMG ---
ABD 1VW HISTORY: Small bowel obstruction COMPARISON: None FINDINGS: A frontal projection of the abdomen was obtained. A nonspecific bowel gas pattern is seen. Fecal material is seen in the colon. Degenerative changes of the thoracolumbar spine are noted. Post right hip replacement changes are seen. IMPRESSION: 1. A nonspecific bowel gas pattern is seen.
--- NOTE | 2024-03-12 11:35 | PN ---
[facility] PROGRESS NOTE Date Patient Seen: Mar 12, 2024 Time of Visit: 11:32 Supervising Physician: Chantelle Redding Primary Care Physician: Dr. La Nena Olsen Outpatient Specialists: Inpatient Consults: Dr. Shaka Epstein, surgeon PROBLEM LIST: Incarcerated ventral hernia causing patient bowel obstruction S/P Laparoscopic ventral hernia repair w/ Complete closure of hernia defect on 03/08/[address] Epstein Acute kidney injury on admission, resolved Diabetes mellitus , type II Hypertension Hyperlipidemia Octogenarian History of DVT Elevated TSH History: Laparoscopic gastric restrictive band and laparoscopic band removal Plan Summary: Supplemental oxygen as needed Wean off as tolerated Clear liquid diet and advance as tolerated Out of bed to chair and ambulate [id number] g p.o. daily Bisacodyl 10 mg daily Simethicone t.i.d. PT as tolerated Out of bed to chair and ambulate Dispo: IRU once accepted INTERVAL HISTORY: Pt remains weak at this point, + nausea, + emesis , Ambulating today , no BM however is passing gas. Continues on IVF and CLD. Expresses she is unable to tolerate broth . Lab work reveals leukocytosis of 12.0, potassium of 3.6, prior magnesium of 1.8. continues on NS at 100 cc/hour, awaiting further recommendations from General surgery at this time. 03/11 - patient is seen and evaluated currently working with physical therapy. Patient is ambulating around the verma. Patient does appear weak and deconditioned. Patient does report passing gas however has not had a bowel movement. Patient continues on clear liquid diet at this time. No acute changes reported overnight. Continue to monitor closely. Vital signs are stable. Labs are within normal limits. Continue current treatment plan for now. 03/12 - patient is seen sitting up in bed continues to complain of mild pain in her abdomen. Patient reports he is passing gas however has not had a bowel movement. Obtain a KUB and results showed nonspecific bowel gas pattern as well as fecal material in the colon. We will add stool softeners and simethicone as needed. Encouraged the patient to continue ambulating with physical therapy as tolerated. She did report requiring assistance and has been referred to IRU and currently pending acceptance. We will continue current Treatment plan for now. REVIEW OF SYSTEMS: 12 point ROS reviewed with patient. Pertinent positives mentioned above. Otherwise negative. PHYSICAL EXAM: GENERAL: alert, weak, awake oriented x 3 HEENT: EOMI, Sclera non icteric, moist mucosa NECK: Supple, no JVD, trachea midline LUNGS: Clear breath sounds bilaterally. No wheezes HEART: Regular rate and rhythm. Normal S1 and S2, without murmurs ABD: Abdomen soft, mild diffuse tenderness, BS hypoactive EXT: No clubbing cyanosis or edema NEURO: Alert and oriented x3. no neuro deficits. Vital Signs (last 8hr) Date Time Temp Pulse Resp B/P (MAP) Pulse Ox O2 Delivery O2 Flow Rate FiO2 03/12/24 08:00 95 Room Air* 0 21 03/12/24 08:00 98.8 74 18 150/71 95 Room Air 21 03/12/24 04:00 98.4 78 20 158/64 94 Room Air LABS: Hematology Labs: Test 03/12/24 04:10 03/11/24 05:22 Range/Units White Blood Count 13.7 H 4.8-10.8 K/uL Red Blood Count 3.66 L 4.00-5.50 MIL/uL Hemoglobin 11.4 L 12.0-16.0 g/dL Hematocrit 33.6 L 36-48 % Mean Corpuscular Volume 91.8 79-99 fL Mean Corpuscular Hemoglobin 31.1 27.0-33.0 pg Mean Corpuscular Hemoglobin Concent 33.9 32.0-36.0 g/dL Red Cell Distribution Width 12.0 11.0-15.5 % Platelet Count 205 # 130-400 K/uL Mean Platelet Volume 9.9 7.5-10.5 fL Nucleated Red Blood Cells 0.0 0.0-0.19 % Immature Granulocyte % (Auto) 0.6 0-1 % Neutrophils (%) (Auto) 76.7 40.0-77.0 % Lymphocytes (%) (Auto) 6.3 L 21.0-51.0 % Monocytes (%) (Auto) 14.7 H 3.0-13.0 % Eosinophils (%) (Auto) 1.5 0.0-8.0 % Basophils (%) (Auto) 0.2 0.0-5.0 % Neutrophils # (Auto) 10.4 H 1.8-7.7 K/uL Lymphocytes # (Auto) 0.9 L 1.0-4.8 K/uL Monocytes # (Auto) 2.0 H 0.1-1.0 K/uL Eosinophils # (Auto) 0.20 0.00-0.70 K/uL Basophils # (Auto) 0.03 0.00-0.20 K/uL Absolute Immature Granulocyte (auto 0.08 0-1 K/uL Chemistry Labs: Test 03/12/24 11:24 03/12/24 04:10 03/11/24 05:22 Range/Units Whole Blood Glucose 127 H 70-110 MG/DL Sodium Level 134 L 136-145 mmol/L Potassium Level 4.6 3.5-5.1 mmol/L Chloride Level 99 L 101-111 mmol/L Carbon Dioxide Level 30 21-32 mmol/L Blood Urea Nitrogen 13 7-18 mg/dL Creatinine 0.9 0.5-1.0 mg/dL Glomerular Filtration Rate Calc 61 >90 mL/min Random Glucose 101 70-105 mg/dL Total Calcium 8.7 8.5-10.1 mg/dL Procalcitonin 0.26 0.05-0.5 ng/mL Magnesium Level 1.90 1.80-2.40 mg/dL Total Bilirubin 0.7 0.2-1.0 mg/dL Aspartate Amino Transf (AST/SGOT) 27 10-37 U/L Alanine Aminotransferase (ALT/SGPT) 16 12-78 U/L Alkaline Phosphatase 67 50-136 U/L Total Protein 5.4 L 6.0-8.3 g/dL Albumin 2.6 L 3.5-5.0 g/dL DIAGNOSTICS / RADIOLOGY RESULTS: PATIENT: YUDY REYES MR#: [id number] : 1935 SEX: F AGE: 88 LOCATION: [facility] ORDER [id number] STATUS: ADM IN REPORT#: [id number] SERVICE 0600 REASON: sbo ORDERING PHYSICIAN: KOSTA JOYA NP PROCEDURE: ABD 1VW - ABD 1VW ABD 1VW HISTORY: Small bowel obstruction COMPARISON: None FINDINGS: A frontal projection of the abdomen was obtained. A nonspecific bowel gas pattern is seen. Fecal material is seen in the colon. Degenerative changes of the thoracolumbar spine are noted. Post right hip replacement changes are seen. IMPRESSION: 1. A nonspecific bowel gas pattern is seen. DICTATED BY: ABDIRASHID BEAVERS MD DATE: 03/12/24928 ELECTRONICALLY SIGNED BY: ABDIRASHID BEAVERS MD DATE: 03/12/24931 Plan: Neuro: Minimize central acting medications as possible. Maintain fall precautions, adequate lighting during the day Cardiovascular: Follow hemodynamics. Vital signs per facility protocol Pulmonary: Supplemental 02 as needed. Maintain aspiration precautions at all times GI and nutrition: Continue with nutritional support. CLD , KUb in AM and await general surgery recs Encourage ambulation Continue stool softeners and laxatives as needed. Kidney and electrolytes: Strict monitoring of intake, output and overall fluid balance. Avoid nephrotoxic medications to the extent possible. Medications to be dosed according to renal function. Monitor electrolytes and replace as needed Endocrine: Maintain blood glucose between 100-180 at all times. Hypoglycemia protocol in place Infectious disease: Trend temperature, WBC and procalcitonin level Follow cultures, deescalate antibiotics as soon as possible. Panculture if new onset fever Oncology/Hematology/Coagulation: Monitor for s/s of bleeding Monitor hemoglobin, coagulation studies as needed Skin: Pressure ulcer prevention per facility protocol Specialty mattress Ortho/Rehab: Continue PT/OT Prophylaxis:. Continue GI and DVT prophylaxis as appropriate Disposition:. IRU once accepted Total patient care time excluding any procedures: 40 min ATTESTATION BY PHYSICIAN The patient has been seen and evaluated, the case has been discussed with the [employer], I agree with the clinical findings and plan of care. Zachary Redding MD, ECTOR N NP Mar 12, 2024 11:35
[2024-03-12 12:00] VITALS: BP 127/58; PULSE 50; RESP 18; TEMP 98.7
[2024-03-12] MEDS: polyETHYLene GLYCol 3350 17 GM POWD.PACK PO SCH (13:55)
[2024-03-12] MEDS: BisaCODYL 5 MG TABLET.DR PO SCH (13:55)
[2024-03-12 16:00] VITALS: BP 141/69; PULSE 61; RESP 18; TEMP 98.2
[2024-03-12 20:00] VITALS: BP_SYST 149; BP_SYST 175; BP_DIAS 71; BP_DIAS 84; PULSE 63; PULSE 88; RESP 20; RESP 24; TEMP 98.5; O2SAT 95
[2024-03-13] VITALS: BP 138/59; PULSE 68; RESP 18; TEMP 98.2
[2024-03-13 04:00] VITALS: BP 138/62; PULSE 69; RESP 18; TEMP 98.3
[2024-03-13 04:36] LABS: BASOPHILS # (AUTO) 0.04 K/uL (0.00-0.20); BASOPHILS % (AUTO) 0.3 % (0.0-5.0); EOSINOPHILS # (AUTO) 0.56 K/uL (0.00-0.70); EOSINOPHILS % (AUTO) 4.7 % (0.0-8.0); HEMATOCRIT 31.6 % (36-48); IMMATURE GRANULOCYTE ABSOLUTE 0.06 K/uL (0-1); LYMPHOCYTES # (AUTO) 1.5 K/uL (1.0-4.8); LYMPHOCYTES % (AUTO) 12.8 % (21.0-51.0); MEAN CORPUSCULAR HEMOGLOBIN 31.1 pg (27.0-33.0); MEAN CORPUSCULAR HGB CONC 34.5 g/dL (32.0-36.0); MONOCYTES # (AUTO) 2.2 K/uL (0.1-1.0); MONOCYTES % (AUTO) 18.6 % (3.0-13.0); NEUTROPHILS # (AUTO) 7.4 K/uL (1.8-7.7); NEUTROPHILS % (AUTO) 63.1 % (40.0-77.0); PLATELET COUNT (AUTO) 202 K/uL (130-400); RED BLOOD CELL COUNT(AUTO) 3.51 MIL/uL (4.00-5.50); RED CELL DISTRIBUTION WIDTH 12.1 % (11.0-15.5); WHITE BLOOD COUNT (AUTO) 11.8 K/uL (4.8-10.8)
[2024-03-13 04:46] LABS: POTASSIUM 3.7 mmol/L (3.5-5.1)
[2024-03-13 08:00] VITALS: BP 135/66; PULSE 87; RESP 18; TEMP 98.6; O2SAT 95
--- NOTE | 2024-03-13 11:04 | PN ---
[facility] PROGRESS NOTE Date Patient Seen: Mar 13, 2024 Time of Visit: 11:00 Supervising Physician: Dr Jimenez Redding Primary Care Physician: Dr. La Nena Olsen Outpatient Specialists: Inpatient Consults: Dr. 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 daily Bisacodyl 10 mg daily Simethicone t.i.d. PT as tolerated Out of bed to chair and ambulate Dispo: IRU once accepted INTERVAL HISTORY: Pt remains weak at this point, + nausea, + emesis , Ambulating today , no BM however is passing gas. Continues on IVF and CLD. Expresses she is unable to tolerate broth . Lab work reveals leukocytosis of 12.0, potassium of 3.6, prior magnesium of 1.8. continues on NS at 100 cc/hour, awaiting further recommendations from General surgery at this time. 03/11 - patient is seen and evaluated currently working with physical therapy. Patient is ambulating around the verma. Patient does appear weak and dec onditioned. Patient does report passing gas however has not had a bowel movement. Patient continues on clear liquid diet at this time. No acute changes reported overnight. Continue to monitor closely. Vital signs are stable. Labs are within normal limits. Continue current treatment plan for now. 03/12 - patient is seen sitting up in bed continues to complain of mild pain in her abdomen. Patient reports he is passing gas however has not had a bowel movement. Obtain a KUB and results showed nonspecific bowel gas pattern as well as fecal material in the colon. We will add stool softeners and simethicone as needed. Encouraged the patient to continue ambulating with physical therapy as tolerated. She did report requiring assistance and has been referred to IRU and currently pending acceptance. We will continue current Treatment plan for now. 03/13 - patient is seen sitting up in bed with no signs of acute distress. Patient reports a large bowel movement overnight and another this morning. Patient's abdomen is softer and nontender on exam in comparison to yesterday. We will advance patient's diet to GI soft. Patient has been encouraged to continue ambulating with physical therapy. Patient has been referred to IRU and currently pending acceptance. We will plan to DC once arrangements are made for IRU. REVIEW OF SYSTEMS: 12 point ROS reviewed with patient. Pertinent positives mentioned above. Otherwise negative. PHYSICAL EXAM: GENERAL: alert, weak, awake oriented x 3 HEENT: EOMI, Sclera non icteric, moist mucosa NECK: Supple, no JVD, trachea midline LUNGS: Clear breath sounds bilaterally. No wheezes HEART: Regular rate and rhythm. Normal S1 and S2, without murmurs ABD: Abdomen soft, mild diffuse tenderness, BS hypoactive EXT: No clubbing cyanosis or edema NEURO: Alert and oriented x3. no neuro deficits. Vital Signs (last 8hr) Date Time Temp Pulse Resp B/P (MAP) Pulse Ox O2 Delivery O2 Flow Rate FiO2 03/13/24 08:00 98.6 87 18 135/66 95 Room Air 21 03/13/24 04:00 98.2 69 18 138/62 95 Room Air LABS: Hematology Labs: Test 03/13/24 04:14 Range/Units White Blood Count 11.8 H 4.8-10.8 K/uL Red Blood Count 3.51 L 4.00-5.50 MIL/uL Hemoglobin 10.9 L 12.0-16.0 g/dL Hematocrit 31.6 L 36-48 % Mean Corpuscular Volume 90.0 79-99 fL Mean Corpuscular Hemoglobin 31.1 27.0-33.0 pg Mean Corpuscular Hemoglobin Concent 34.5 32.0-36.0 g/dL Red Cell Distribution Width 12.1 11.0-15.5 % Platelet Count 202 130-400 K/uL Mean Platelet Volume 10.1 7.5-10.5 fL Immature Granulocyte % (Auto) 0.5 0-1 % Neutrophils (%) (Auto) 63.1 40.0-77.0 % Lymphocytes (%) (Auto) 12.8 L 21.0-51.0 % Monocytes (%) (Auto) 18.6 H 3.0-13.0 % Eosinophils (%) (Auto) 4.7 0.0-8.0 % Basophils (%) (Auto) 0.3 0.0-5.0 % Neutrophils # (Auto) 7.4 1.8-7.7 K/uL Lymphocytes # (Auto) 1.5 1.0-4.8 K/uL Monocytes # (Auto) 2.2 H 0.1-1.0 K/uL Eosinophils # (Auto) 0.56 0.00-0.70 K/uL Basophils # (Auto) 0.04 0.00-0.20 K/uL Absolute Immature Granulocyte (auto 0.06 0-1 K/uL Nucleated Red Blood Cells 0.0 0.0-0.19 % Chemistry Labs: Test 03/13/24 05:59 03/13/24 04:14 03/12/24 04:10 Range/Units Whole Blood Glucose 104 70-110 MG/DL Sodium Level 131 L 136-145 mmol/L Potassium Level 3.7 3.5-5.1 mmol/L Chloride Level 96 L 101-111 mmol/L Carbon Dioxide Level 28 21-32 mmol/L Blood Urea Nitrogen 15 7-18 mg/dL Creatinine 1.0 0.5-1.0 mg/dL Glomerular Filtration Rate Calc 54 >90 mL/min Random Glucose 91 70-105 mg/dL Total Calcium 8.3 L 8.5-10.1 mg/dL Procalcitonin 0.26 0.05-0.5 ng/mL DIAGNOSTICS / RADIOLOGY RESULTS: PATIENT: YUDY REYES MR#: [id number] : 1935 SEX: F AGE: 88 LOCATION: [facility] ORDER 2300 STATUS: ADM IN REPORT#: [id number] SERVICE 0600 REASON: sbo ORDERING PHYSICIAN: KOSTA JOYA NP PROCEDURE: ABD 1VW - ABD 1VW ABD 1VW HISTORY: Small bowel obstruction COMPARISON: None FINDINGS: A frontal projection of the abdomen was obtained. A nonspecific bowel gas pattern is seen. Fecal material is seen in the colon. Degenerative changes of the thoracolumbar spine are noted. Post right hip replacement changes are seen. IMPRESSION: 1. A nonspecific bowel gas pattern is seen. DICTATED BY: ABDIRASHID BEAVERS MD DATE: 03/12/24928 ELECTRONICALLY SIGNED BY: ABDIRASHID BEAVERS MD DATE: 03/12/2432 Plan: Neuro: Minimize central acting medications as possible. Maintain fall precautions, adequate lighting during the day Cardiovascular: Follow hemodynamics. Vital signs per facility protocol Pulmonary: Supplemental 02 as needed. Maintain aspiration precautions at all times GI and nutrition: Continue with nutritional support. CLD , KUb in AM and await general surgery recs Encourage ambulation Continue stool softeners and laxatives as needed. Kidney and electrolytes: Strict monitoring of intake, output and overall fluid balance. Avoid nephrotoxic medications to the extent possible. Medications to be dosed according to renal function. Monitor electrolytes and replace as needed Endocrine: Maintain blood glucose between 100-180 at all times. Hypoglycemia protocol in place Infectious disease: Trend temperature, WBC and procalcitonin level Follow cultures, deescalate antibiotics as soon as possible. Panculture if new onset fever Oncology/Hematology/Coagulation: Monitor for s/s of bleeding Monitor hemoglobin, coagulation studies as needed Skin: Pressure ulcer prevention per facility protocol Specialty mattress Ortho/Rehab: Continue PT/OT Prophylaxis:. Continue GI and DVT prophylaxis as appropriate Disposition:. IRU once accepted Total patient care time excluding any procedures: 40 min ATTESTATION BY PHYSICIAN The patient has been seen and evaluated, the case has been discussed with the ELECTRICAL ENGINEERING TECHNICIAN, I agree with the clinical findings and plan of care. Zachary Redding MD, ECTOR N NP Mar 13, 2024 11:03
[2024-03-13 12:00] VITALS: BP 133/73; PULSE 60; RESP 18; TEMP 98.4
[2024-03-13] MEDS: SUCRALFATE 1 GM TABLET ONE (15:11)
[2024-03-13] MEDS: acetaMINOPHEN 325 MG TAB PO PRN (15:16)
[2024-03-13 16:00] VITALS: BP 150/66; PULSE 75; RESP 18; TEMP 99.1
[2024-03-13] MEDS: CYCLOBENZAPRINE HCL 10 MG TABLET PO PRN (16:51)
--- NOTE | 2024-03-13 16:55 | NUR ---
EVELIO NOTE: [facility] PENDING ACCEPTANCE CM MET WITH PT DISCUSSED MD RECOMMENDATIONS FOR IRU, PT AGREEABLE WOULD LIKE TO GO TO [facility] IRU, CONSENT SIGNED TONEY. CM SENT ORDER, CLINICALS, PT TO [facility] VIA SECURE FAX AND EMAIL, CONFIRMATION RECEIVED. PENDING REP RESPONSE. PT PENDING ACCEPTANCE. MOT FILLED OUT, PENDING TO COMPLETE ONCE PT HAS ACCEPTANCE. PT REQUEST EMS TRANSPORT, EMS FILLED OUT, PENDING TO FAX W/CURRENT DATE ONCE PT READY TO DC. PRIMARY NURSE NELLA MADE AWARE. KOSTA LITIGATION LEGAL ASSISTANT UPDATED. CM TO CONTINUE TO FOLLOW UP. Addendum: 03/13/24 at 1657 by BONY CARBALLO LVN CM Amended: Links added.
[2024-03-13 20:00] VITALS: BP 145/61; PULSE 67; RESP 20; TEMP 98.4
[2024-03-13] MEDS: SUCRALFATE 1 GM TABLET PO SCH (21:05)
[2024-03-14] VITALS: BP 140/64; PULSE 64; RESP 18; TEMP 97.9
[2024-03-14 04:00] VITALS: BP 121/56; PULSE 50; RESP 18; TEMP 98.2
[2024-03-14 05:59] LABS: HEMATOCRIT 28.8 % (36-48); MEAN CORPUSCULAR HEMOGLOBIN 31.7 pg (27.0-33.0); MEAN CORPUSCULAR HGB CONC 34.7 g/dL (32.0-36.0); MEAN CORPUSCULAR VOLUME 91.4 fL (79-99); RED BLOOD CELL COUNT(AUTO) 3.15 MIL/uL (4.00-5.50); WHITE BLOOD COUNT (AUTO) 9.6 K/uL (4.8-10.8)
[2024-03-14 06:10] LABS: CREATININE 1.5 mg/dL (0.5-1.0); POTASSIUM 4.1 mmol/L (3.5-5.1)
[2024-03-14 08:00] VITALS: BP 128/56; PULSE 80; RESP 18; TEMP 98.4; O2SAT 95
[2024-03-14] MEDS: SIMETHICONE 80 MG TAB.CHEW PO PRN (08:40)
--- NOTE | 2024-03-14 10:31 | DS ---
[facility] DISCHARGE SUMMARY Date Patient Seen: Mar 14, 2024 Time of Visit: 10:28 Supervising Physician: [Dr Roberts Primary Care Physician: Dr. La Nena Olsen Outpatient Specialists: Inpatient Consults: Dr. Shaka Epstein, surgeon PROBLEM LIST: Incarcerated ventral hernia causing patient bowel obstruction S/P Laparoscopic ventral hernia repair w/ Complete closure of hernia defect on 03/08/[address] Epstein Acute kidney injury on admission, resolved Diabetes mellitus , type II Hypertension Hyperlipidemia Octogenarian History of DVT Elevated TSH History: Laparoscopic gastric restrictive band and laparoscopic band removal HOSPITAL COURSE: HPI (per admitting provider) Ms. Lucas is an 88-year-old female who presented to [facility] for evaluation of left abdominal pain the radiate to the back, nausea, and vomiting onset yesterday. The patient reported the pain was worse with palpation. The patient had a history of gastric band and then gastric band removal. Patient reported the pain worsened which prompted her to come to the ED. CT scan was obtained. CT scan shows a ventral hernia with a portion of the stomach actually the antrum of the stomach within the hernia causing obstruction. Prior to onset of symptoms patient was tolerating a regular diet, having regular bowel function. Patient denied any melena, hematochezia, and hematuria. Remarkable lab results: RBC 3.97, BUN 22, GFR 54. ED administered morphine [address] an NG tube. Patient was seen and assessed at bedside in 416. The patient appeared comfortable, in no distress, breathing was even and unlabored. The patient reports that the pain was improved with the morphine and the NG tube that was started in the ED. I informed the patient of labs, diagnostics, and plan of care. The patient verbalized understanding and is in agreement with the plan. Plan and assessment are listed below. Patient is awake alert and oriented x3 seen in room 416 she is status post ventral hernia repair with full closure by Dr Epstein. Recovering well hemodynam ically stable in no apparent distress saturating 96% with 2 L via nasal cannula. H&H is 11.4/35.7 [id number] platelets. Chemistry unremarkable albumin 3.1 protein 5.5 TSH 8.31, may be in elevated in the presence of acute illness, I will order free T3 and T4 for now. Pt remains weak at this point. She is not yet passing gas, no BM. Continues on IVF and CLD. She has expected post operative abdominal soreness. Denies any headache or dizziness. Denies any chest pain or palpitations. Denies any cough or shortness of breath at rest. Denies any dysuria or hematuria Pt remains weak at this point, + nausea, + emesis , Ambulating today , no BM however is passing gas. Continues on IVF and CLD. Expresses she is unable to tolerate broth . Lab work reveals leukocytosis of 12.0, potassium of 3.6, prior magnesium of 1.8. continues on NS at 100 cc/hour, awaiting further recommendations from General surgery at this time. 03/11 - patient is seen and evaluated currently working with physical therapy. Patient is ambulating around the verma. Patient does appear weak and deconditioned. Patient does report passing gas however has not had a bowel m ovement. Patient continues on clear liquid diet at this time. No acute changes reported overnight. Continue to monitor closely. Vital signs are stable. Labs are within normal limits. Continue current treatment plan for now. 03/12 - patient is seen sitting up in bed continues to complain of mild pain in her abdomen. Patient reports he is passing gas however has not had a bowel movement. Obtain a KUB and results showed nonspecific bowel gas pattern as well as fecal material in the colon. We will add stool softeners and simethicone as needed. Encouraged the patient to continue ambulating with physical therapy as tolerated. She did report requiring assistance and has been referred to IRU and currently pending acceptance. We will continue current Treatment plan for now. 03/13 - patient is seen sitting up in bed with no signs of acute distress. Patient reports a large bowel movement overnight and another this morning. Patient's abdomen is softer and nontender on exam in comparison to yesterday. We will advance patient's diet to GI soft. Patient has been encouraged to continue ambulating with physical therapy. Patient has been referred to IRU and currently pending acceptance. We will plan to DC once arrangements are made for IRU. Today patient is seen sitting up in bed with no signs of acute distress. Patient reports having other bowel movement this morning. Abdomen is soft and nontender. Patient continues working with physical therapy and was able to [id number]. Patient reports she no longer wants to go IRU only to be discharged home. Patient has been advised to follow up with PCP in the next 1-2 days. Patient has been advised to follow up with surgeon in 1-2 weeks. Patient verbalized understanding. Medication reconciliation has been completed. New prescriptions have been sent to patient's pharmacy. Education regarding current diagnosis has been provided to the patient. All questions have been answered. Patient to be discharged home. The patient was treated for the following problems: ACTIVE PROBLEM LIST FOR THE HOSPITALIZATION: Incarcerated ventral hernia causing patient bowel obstruction S/P Laparoscopic ventral hernia repair w/ Complete closure of hernia defect on 03/08/[address] Epstein Acute kidney injury on admission, resolved Diabetes mellitus , type II Hypertension Hyperlipidemia Octogenarian History of DVT Elevated TSH History: Laparoscopic gastric restrictive band and laparoscopic band removal CHRONIC PROBLEMS: continue previous management per PCP unless otherwise indicated ROOM SERVICE ATTENDANT FINDINGS/RECOMMENDATIONS: [ ] PROCEDURES: as mentioned above DISCHARGE MEDICATIONS: See DC med list Pt hemodynamically stable and afebrile at time of discharge. PCP notified of patients admission, hospital course and discharge. Continued Medications: Acetaminophen/Diphenhydramine (Tylenol Pm Exstr 500-25Mg Cplt) 1 Each Tablet 1 EACH PO HS, TAB Apixaban (Eliquis) 5 Mg Tablet 5 MG PO BID, TAB [Biotin] () 5000 MG PO DAILY Glucosa Hagen 2Kcl/Chondroitin Hagen (Glucosamine & Chondroitin Cap) 1 Each Capsule 1 EACH PO DAILY, CAP Losartan Potassium (Losartan Potassium) 100 Mg Tablet 100 MG PO HS, TAB Metoprolol Succinate (Metoprolol Succinate) 25 Mg Tab.er.24h 25 MG PO DAILY, TAB Multivits-Min/Iron/FA/Lutein (Centrum Silver Women Tablet) 1 Each Tablet 1 EACH PO DAILY, TAB Potassium Citrate (Potassium) 99 Mg Capsule 99 MG PO DAILY, CAP Pravastatin Sodium (Pravastatin Sodium) 10 Mg Tablet 10 MG PO HS, TAB Turmeric Root Extract (Turmeric) 500 Mg Capsule 500 MG PO DAILY, CAP Ubidecarenone/Vit E Acetate (Co Q-10 100 mg Softgel) 1 Each Capsule 1 EACH PO DAILY, CAP Vit A/C/E/Zinc/Selenium/Copper (Vision Formula Tablet) 1 Each Tablet 1 EACH PO DAILY, TAB Vitamin B Complex (Vitamin B Complex) 1 Each Capsule 1 EACH PO DAILY, CAP [Vitamin D3] () 5000 UNITS PO DAILY Discontinued Medications: Cephalexin (Cephalexin) 500 Mg Tablet 500 MG PO BID, TAB RIGHT LEG WOUND PHYSICAL EXAM: GENERAL: alert, weak, awake oriented x 3 HEENT: EOMI, Sclera non icteric, moist mucosa NECK: Supple, no JVD, trachea midline LUNGS: Clear breath sounds bilaterally. No wheezes HEART: Regular rate and rhythm. Normal S1 and S2, without murmurs ABD: Abdomen soft, mild diffuse tenderness, BS hypoactive EXT: No clubbing cyanosis or edema NEURO: Alert and oriented x3. no neuro deficits. FOLLOW-UP: Follow-up with PCP in 2-3 days Follow up with Dr. Calixto in 1-2 weeks RECOMMENDATIONS: See Discharge Instructions This case was seen and discussed with my supervising physician. More than 30 minutes spent on discharge process, including evaluation of the patient, discussion with nursing staff, medication reconciliation and follow-up appointments ATTESTATION BY PHYSICIAN I have evaluated the patient chart, medical records, and spoke with appropriate staff. I reviewed the documentation, medical decision making, and treatment plan as noted by the mid-level provider above. I agree with the findings and plan of care. Odell Roberts MD, ECTOR N NP Mar 14, 2024 10:31
[2024-03-14 12:00] VITALS: BP 135/82; PULSE 63; RESP 18; TEMP 97.8
--- NOTE | 2024-03-14 14:35 | NUR ---
DISCHARGE PATIENT HAS BEEN DISCHARGED HOME. PIV REMOVED. PRESSURE GAUZE AND TAPE APPLIED TO SITE. APPOINTMENT FOR PT MADE 03/28/[address] REGALADO. PATIENT VERBALIZES UNDERSTANDING OF DISCHARGE PAPERWORK. PATIENT IS TO FOLLOW UP WITH PCP. PATIENT WHEELED DOWN TO PRIVATE AUTOMOBILE ACCOMPANIED BY PRIMARY NURSE.
[2024-03-17] MEDS ORDERED: UBID100C10 PO (23:19)
[2024-03-17] MEDS ORDERED: APIX5TAB PO (23:19)
[2024-03-17] MEDS ORDERED: CHOL50002 PO (23:19)
[2024-03-17] MEDS ORDERED: PRAV10TA39 PO (23:19)
[2024-03-17] MEDS ORDERED: GLUC1TAB61 PO (23:19)
[2024-03-17] MEDS ORDERED: POLY17PO4 PO (23:19)
[2024-03-17] MEDS ORDERED: VIT-12 PO (23:19)
[2024-03-17] MEDS ORDERED: VITA-328 PO (23:19)
[2024-03-17] MEDS ORDERED: MULT-1294 PO (23:19)
[2024-03-17] MEDS ORDERED: LOSA1TAB42 PO (23:19)
[2024-03-19] MEDS ORDERED: FURO20TA6 PO (12:05)
[2024-03-19] MEDS ORDERED: LEVO25CA4 PO (12:05)
== END 2024-03-14 14:20 | disposition home or self-care (01) | DRG 354 ==
LOC: EDH 10:19 → EDHIP 15:29 → 4CH 20:09
PROVIDERS: ADMIT Internal Medicine Critical Care Medicine; ATTEND Internal Medicine Critical Care Medicine
PROC: 0WUF4JZ Supplement Abdominal Wall with Synthetic Substitute, Percutaneous Endoscopic Approach (ICD-10-PCS; principal; 2024-03-08 07:23)
DX: K43.6 Other and unspecified ventral hernia with obstruction, without gangrene (principal); K31.1 Adult hypertrophic pyloric stenosis; N17.9 Acute kidney failure, unspecified; I12.9 Hypertensive chronic kidney disease with stage 1 through stage 4 chronic kidney disease, or unspecified chronic kidney disease; N18.9 Chronic kidney disease, unspecified; E11.22 Type 2 diabetes mellitus with diabetic chronic kidney disease; E78.00 Pure hypercholesterolemia, unspecified; E86.0 Dehydration; Z86.718 Personal history of other venous thrombosis and embolism; Z98.84 Bariatric surgery status; Z79.899 Other long term (current) drug therapy
CPT/HCPCS: 36415; 71045; 74018; 74177; 80048; 80053; 81003; 82948; 83036; 83690; 83735; 84100; 84145; 84439; 84443; 84481; 85025; 85027; 93005; 96374; 96375; 96376; 99285; A4606; C1781; G0378; J0330; J0690; J1171; J1650; J1885; J2003; J2175; J2250; J2270; J2405; J2704; J2710; J3010; J3490; A4648; A4649; A4930; J0665

== ENCOUNTER 2024-04-03 12:02 | Emergency (ER) | payer MEDICARE ==
[~2024-04-03] VITALS: Ht 162.6 cm; Wt 68.0 kg
[~2024-04-03 12:02] MED LIST changes: -CEPH500T PO; +CHOL50002 PO; +FURO20TA6 PO; +GLUC1TAB61 PO; +LEVO25CA4 PO; -LOSA100T59 PO; +LOSA1TAB42 PO; +MULT-1294 PO; +POLY17PO4 PO; +UBID100C10 PO; +VITA-328 PO
--- NOTE | 2024-04-03 12:16 | NUR ---
SEEN BY RAFFAELE HE IN [facility]
[2024-04-03] MEDS: morPHINE 2 MG SYG IM ONE (12:37)
--- NOTE | 2024-04-03 13:56 | HMCIMG ---
CT CERVICAL SPINE W/O CONTRAST HISTORY: No additional history given. COMPARISON: None TECHNIQUE: Multiple sequential axial images of the cervical spine were obtained including post processing sagittal and coronal reconstruction images. Patient was not given contrast through intravenous route. FINDINGS: Orthopedic fixation plates and screws are seen traversing the C5-C6 with disc fusion. Disc space narrowing are seen at C5-6 and C6-7 levels. There are degenerative changes with cervical spine spondylosis. There is straightening of normal lordotic cervical curvature which may be related to muscle spasm or positioning. There is no loss of vertebral height. Evaluation for disc and cord pathology is limited with CT study. No evidence of fracture or dislocation is seen. IMPRESSION: 1. No fracture is seen. DJD with postop changes. CT was performed with one or more following dose reduction techniques: automated exposure control, adjustment of the mA and kv according to patient's size, or use of a iterative reconstruction technique.
--- NOTE | 2024-04-03 14:20 | ERN ---
General Chief Complaint: Neck Pain Stated Complaint: POST OP, BACK PAIN Time Seen by MD: 12:10 Time Seen by Midlevel: 12:10 Source: patient History of Present Illness Initial Comments Patient is an 88-year-old female presenting to the emergency department with neck pain that has been ongoing for the last two weeks. Patient does report seeing her primary care doctor for this is and was given medication with little to no relief. She reports a previous neck surgery years ago. She specifically denies any vision changes, headaches, focal weakness/numbness to bilateral upper extremities. Denies any recent trauma. Denies any fall. Patient has no other concerns at this time. Allergies: Coded Allergies: No Known Allergies (Unverified Allergy, Unknown, 01/16/19) Home Meds Active Scripts Furosemide (Lasix 20Mg Tab) 20 Mg Tablet, 1 TAB PO DAILY for 30 Days, #30 TAB 0 Refills Prov:ELLYN RENTERIA 03/19/24 Levothyroxine Sodium (Levothyroxine) 25 Mcg Capsule, 1 CAP PO DAILY for 30 Days, #30 CAP 0 Refills Prov:ELLYN RENTERIA PA 03/19/24 Reported Medications Polyethylene Glycol 3350 (Miralax) 17 Gram Powd.pack, 17 GM PO DAILY 03/17/24 Pravastatin Sodium (Pravastatin Sodium) 10 Mg Tablet, 10 MG PO DAILY, TAB 03/17/24 Losartan/Hydrochlorothiazide (Losartan-Hctz 100-12.5 mg Tab) 100 Mg-12.5 Mg Tablet, 1 EACH PO DAILY, TAB 03/17/24 Apixaban (Eliquis) 5 Mg Tablet, 5 MG PO DAILY, #2 TAB 03/17/24 Cholecalciferol (Vitamin D3) (D3-50) 1,250 Mcg (74811 Unit) Capsule, 5000 UNIT PO DAILY, CAP 03/17/24 Glucosamine/Chondro Hagen A (Glucosamine-Chondroitin Tab) 500 Mg-400 Mg Tablet, 1 EACH PO DAILY, TAB 24 Vitamin B Complex (B Complex) 1 Each Tablet, 1 EACH PO DAILY, TAB 03/17/24 Ubidecarenone (Coq-10) 100 Mg Capsule, 100 MG PO DAILY, CAP 03/17/24 Vit A/C/E/Zinc/Selenium/Copper (Vision Formula Tablet) 1,000-60-30 Tablet, 1 EACH PO DAILY, TAB 03/17/24 Multivit-Min/FA/Lycopen/Lutein (Centravites 50 Plus Tablet) 0.4 Mg-300 Mcg-250 Mcg Tablet, 1 EACH PO DAILY, TAB 03/17/24 [Vitamin D3] No Conflict Check, 5000 UNITS PO DAILY 11/02/22 Metoprolol Succinate (Metoprolol Succinate) 25 Mg Tab.er.24h, 25 MG PO DAILY, TAB 11/02/22 Acetaminophen/Diphenhydramine (Tylenol Pm Exstr 500-25Mg Cplt) 1 Each Tablet, 1 EACH PO HS, TAB 11/02/22 Glucosa Hagen 2Kcl/Chondroitin Hagen (Glucosamine & Chondroitin Cap) 1 Each Capsule, 1 EACH PO DAILY, CAP 11/02/22 Turmeric Root Extract (Turmeric) 500 Mg Capsule, 500 MG PO DAILY, CAP 11/02/22 [Biotin] No Conflict Check, 5000 MG PO DAILY 11/02/22 Potassium Citrate (Potassium) 99 Mg Capsule, 99 MG PO DAILY, CAP 11/02/22 Vitamin B Complex (Vitamin B Complex) 1 Each Capsule, 1 EACH PO DAILY, CAP 11/02/22 Ubidecarenone/Vit E Acetate (Co Q-10 100 mg Softgel) 1 Each Capsule, 1 EACH PO DAILY, CAP 11/02/22 Vit A/C/E/Zinc/Selenium/Copper (Vision Formula Tablet) 1 Each Tablet, 1 EACH PO DAILY, TAB 11/02/22 Multivits-Min/Iron/FA/Lutein (Centrum Silver Women Tablet) 1 Each Tablet, 1 EACH PO DAILY, TAB 11/02/22 Past Medical History Past Medical History: Diabetes-Type II, DVT, High Cholesterol, Hypertension, Other Medical History Other: MRSA Past Surgical History: Other Surgical History Other: BACK, HERNIA, RT HIP Female( History) History: Not Applicable ROS Dictation CONSTITUTIONAL: Negative except for HPI HEAD/FACE: Negative except for HPI EENT: Negative except for HPI RESPIRATORY: Negative except for HPI GASTROINTESTINAL/ABDOMINAL: Negative except for HPI GENITOURINARY: Negative except for HPI MUSCULOSKELETAL: Negative except for HPI INTEGUMENTARY: Negative except for HPI NEUROLOGICAL/PSYCH: Negative except for HPI HEMATOLOGIC/LYMPHATIC: Negative except for HPI All Systems Negative, Except as noted above. 13 point review of systems assessed and all negative except for above. Physical Exam Physical Exam Dictation Vital Signs reviewed General Appearance: Alert, oriented x 3, no acute distress, well developed, nourished. Head and Face: non-traumatic. Eyes: PERRL, pink conjunctivas, eyelid no trauma, anterior chamber with arcus senilis. Ears: Pinnas intact and no signs of trauma or erythema ear canals clear and no discharge TM no erythema Nose: No discharge, no bleeding. Oropharynx: Mouth normal, tongue pink, pharynx clear,no erythema, tonsils no exudates, no abscesses noted, mucous membrane moist Neck: Supple, non-tender, no thyromegaly, no masses, no JVD, no bruits Breast:Deferred Chest:No tenderness, no crepitus, no paradoxical movement, no retractions Lungs:Clear, well-ventilated, symmetric, no rales, no wheezing, no rhonchi, no stridor, good breath sounds bilaterally Heart: Regular rate, regular rhythm, no murmur, no gallops Vascular: no peripheral edema, Abdomen: Soft, positive bowel sounds, nondistended, no guarding, nontender, no rebound, no masses no hepatomegaly, no splenomegaly, no Sharp's sign, no hernias. Rectal: Deferred Genital: Deferred Neurological: Normal speech, motor function intact, sensory function intact Musculoskeletal: Neck nontender, full range of motion, back nontender, full range of motion, Extremities: nontender, full range of motion Skin: Color pink, dry, no turgor, no rash, no lacerations, no abrasions, no contusions. Lymphatic: Deferred MDM MDM: Differential diagnosis: Neck strain, chronic neck pain, postop complication There are no social concerns with this patient. Prescription drug management Prescriptions will include: Tylenol Motrin Medical management and examination interpretation discussions were had by me with other qualified healthcare professionals as indicated for the patient's care. ED Course Orders Procedure Category Date Status Time Morphine 2mg Syg PHA 04/03/24 Complete (Morphine 2mg Syg) 12:30 Ct Cervical Spine W/O CT 04/03/24 Resulted Contrast 12:28 Current Medications Medications (Trade) Dose Ordered Sig/Morena Route PRN Reason Start Time Stop Time Status Last Admin Dose Admin Morphine Sulfate (morPHINE 2MG SYG) 2 mg ONCE ONCE IM 04/03/24 12:30 04/03/24 12:31 DC 04/03/24 12:37 Vital Signs Date Time Temp Pulse Resp B/P (MAP) Pulse Ox O2 Delivery O2 Flow Rate FiO2 04/03/24 12:31 99.0 75 16 154/75 98 Room Air* 0 21 04/03/24 12:13 99.0 79 16 156/79 98 Room Air [facility] [address] [place] [address] IMAGING REPORT Signed PATIENT: YUDY REYES MR#: [id number] : 1935 SEX: F AGE: 88 LOCATION: [facility] ORDER STATUS: REG ER REPORT#: [id number] SERVICE [id number] REASON: neck pain x1 week hx of neck surgery ORDERING PHYSICIAN: RAFFAELE HE PROCEDURE: C SPIN WO - CT CERVICAL SPINE W/O CONTRAST CT CERVICAL SPINE W/O CONTRAST HISTORY: No additional history given. COMPARISON: None TECHNIQUE: Multiple sequential axial images of the cervical spine were obtained including post processing sagittal and coronal reconstruction images. Patient was not given contrast through intravenous route. FINDINGS: Orthopedic fixation plates and screws are seen traversing the C5-C6 with disc fusion. Disc space narrowing are seen at C5-6 and C6-7 levels. There are degenerative changes with cervical spine spondylosis. There is straightening of normal lordotic cervical curvature which may be related to muscle spasm or positioning. There is no loss of vertebral height. Evaluation for disc and cord pathology is limited with CT study. No evidence of fracture or dislocation is seen. IMPRESSION: 1. No fracture is seen. DJD with postop changes. CT was performed with one or more following dose reduction techniques: automated exposure control, adjustment of the mA and kv according to patient's size, or use of a iterative reconstruction technique. DICTATED BY: ABDIRASHID BEAVERS MD DATE: 04/03/241349 ELECTRONICALLY SIGNED BY: ABDIRASHID BEAVERS MD DATE: 04/03/241355 DX & DISP Disposition: Discharge Departure Impression: Primary Impression: Neck strain Condition: Stable Additional Instructions: Your CT scan of the cervical spine does not show any acute abnormalities. You were given pain medication in the emergency department. You will need to follow up with your primary care doctor for possible outpatient MRI. Return to your nearest ER if you develop any new or worsening symptoms. Referrals: BARTOLO ORTEGA MD (PCP) Time of Disposition: 14:19 RAFFAELE HE Apr 03, 2024 14:20
[2024-04-03] MEDS: ketOROlac 15MG/ML VIAL (15MG/ML) IM ONE (14:46)
[2024-04-03] MEDS: ORPHENADRINE 60MG/2ML IM ONE (14:46)
[2024-04-03 14:56] VITALS: BP 150/68; PULSE 72; RESP 16; TEMP 98.6; O2SAT 98
== END 2024-04-03 15:10 | disposition home or self-care (01) ==
LOC: EDH 12:02
DX: S16.1XXA Strain of muscle, fascia and tendon at neck level, initial encounter (principal); E11.9 Type 2 diabetes mellitus without complications; E78.00 Pure hypercholesterolemia, unspecified; I10 Essential (primary) hypertension; Z79.01 Long term (current) use of anticoagulants; Z79.890 Hormone replacement therapy; Z79.899 Other long term (current) drug therapy; Z98.890 Other specified postprocedural states; X58.XXXA Exposure to other specified factors, initial encounter; Y93.89 Activity, other specified; Y92.89 Other specified places as the place of occurrence of the external cause; Y99.8 Other external cause status
CPT/HCPCS: 99285; 72125; 96372 ×3; J2270; J1885; J2360

== ENCOUNTER → 2024-04-23 | Outpatient (CLI) | payer MEDICARE ==
--- NOTE | 2024-04-23 12:27 | HMCIMG ---
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 Exam was performed without IV contrast. FINDINGS: There is been anterior interbody fusion at C5-6, there is hardware present. There is moderate interspace narrowing at C4-5 and C6-7. There is normal vertebral body alignment. Axial images show annular bulging at the C2-3. There is some posterior degenerative changes as well. There is narrowing of the spinal canal at this level to between 6 and 7 mm. This is most evident on the sagittal images. AP diameter at C3-4 is also narrowed at between 6 and 7 mm. There is marked narrowing of the right C3-4 neural foramen. C4-5 AP diameter is preserved at 8 mm. There is a focal disc were discussed by complex extending into the right C4-5 neural foramen causing marked narrowing, the left foramen is patent. C5-6 AP diameter is markedly narrowed at approximately 4 mm. This was by annular bulging and by hypertrophic changes posteriorly. This is best seen on the sagittal reconstruction images. There is increased signal in the cord immediately beneath this level consistent with edema or myelomalacia. C6-7 level appears preserved. Cervical cord appears otherwise unremarkable, there are no other areas of abnormal signal intensity. IMPRESSION: 1. Postoperative and degenerative changes as described. 2. Severe narrowing of the spinal canal at the C5-6 level, approximately 4 mm, there are some abnormal signal in the cord immediately below this level consistent with edema or myelomalacia. 3. There are other levels of mild canal narrowing as well as foraminal narrowing as described above.
== END | disposition home or self-care (01) ==
LOC: RAH 04-10 14:31
PROVIDERS: ATTEND Family Medicine
DX: M47.22 Other spondylosis with radiculopathy, cervical region (principal); M50.122 Cervical disc disorder at C5-C6 level with radiculopathy; M48.02 Spinal stenosis, cervical region; M43.22 Fusion of spine, cervical region; Z98.890 Other specified postprocedural states
CPT/HCPCS: 72141

== ENCOUNTER → 2024-05-01 | Outpatient (CLI) | payer MEDICARE ==
--- NOTE | 2024-05-01 16:11 | HMCIMG ---
Exam Type: KNEE 3VWS RT Clinical Information: RIGHT KNEE PAIN Comparison: None Findings: There are degenerative changes with narrowing of the medial femorotibial joint space, with subchondral sclerosis. No acute fractures are seen. The soft tissues appear normal. Impression: Degenerative changes medial compartment.
== END | disposition home or self-care (01) ==
LOC: RAH 15:06
PROVIDERS: ATTEND Family Medicine
DX: M17.11 Unilateral primary osteoarthritis, right knee (principal); M25.561 Pain in right knee
CPT/HCPCS: 73562

== ENCOUNTER → 2024-07-07 | Outpatient (CLI) | payer MEDICARE ==
[~2024-07-07] MED LIST changes: -LEVO25CA4 PO; +LEVO25CA5 PO
--- NOTE | 2024-07-07 13:49 | HMCIMG ---
Exam Type: TIBIA/FIBULA 2VWS RT Clinical Information: PAIN IN RIGHT LEG Comparison: None Findings: There is osteopenia. The examination is otherwise unremarkable. No fractures or dislocations are seen. No radiopaque foreign bodies are noted. Soft tissues are preserved. IMPRESSION: Osteopenia. No acute pathology.
== END | disposition home or self-care (01) ==
LOC: RAH 12:34
PROVIDERS: ATTEND Family Medicine
DX: M85.861 Other specified disorders of bone density and structure, right lower leg (principal); M79.604 Pain in right leg
CPT/HCPCS: 73590

== ENCOUNTER → 2024-07-15 | Outpatient (CLI) | payer MEDICARE ==
--- NOTE | 2024-07-15 16:27 | HMCIMG ---
Findings: No fluid collections or masses are seen. Significantly, there is no evidence of hematoma. No increased fluid throughout the visualized tissue planes is identified. No lymphadenopathy is identified. Impression: No evidence of hematoma or fluid collections or other abnormalities.
== END | disposition home or self-care (01) ==
LOC: RAH 14:34
PROVIDERS: ATTEND Family Medicine
DX: R22.41 Localized swelling, mass and lump, right lower limb (principal)
CPT/HCPCS: 76882

== ENCOUNTER → 2024-09-17 | Outpatient (CLI) | payer MEDICARE ==
[~2024-09-17] MED LIST changes: +PRAV10TA37 PO; -PRAV10TA39 PO
--- NOTE | 2024-09-17 15:18 | HMCIMG ---
MR TIBFIB RIGHT WO HISTORY: Pain COMPARISON: None TECHNIQUE: MRI of the right tibia and fibula was performed utilizing multiple pulse sequences in axial, coronal and sagittal planes. Patient was not given contrast through intravenous route. FINDINGS: No evidence of fracture or dislocation seen. No abnormal signal intensity is seen of the visualized bony structure. There is cystic structure in the inferior aspect of the popliteal fossa measuring 3.6 x 2 x 3.3 cm suggested of Ryan's cyst. There is small right joint effusion. IMPRESSION: 1. There is cystic structure in the inferior aspect of the popliteal fossa measuring 3.6 x 2 x 3.3 cm suggested of Ryan's cyst. There is small right joint effusion.
== END | disposition home or self-care (01) ==
LOC: RAH 13:07
PROVIDERS: ATTEND Family Medicine
DX: M84.361A Stress fracture, right tibia, initial encounter for fracture (principal); M25.561 Pain in right knee; M25.80 Other specified joint disorders, unspecified joint; M25.48 Effusion, other site
CPT/HCPCS: 73718